=== PATIENT | male | born 2005 | race Caucasian/White ===

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

== ENCOUNTER → 2025-05-06 | Outpatient (CLI) | payer OTHER, SELFPAY ==
--- NOTE | 2025-05-05 10:00 | TONS_PTH ---
PATIENT: JUAN BECERRA [facility] U#:[id number] AGE/SX: 19/M ROOM: RE05/06/[address]: Dr. William Weiner MD : 2005 BED: DIS: 05/06/2025 SPEC #: [id number] RECD: 05/06/25 14:53 STATUS: MARY REQ #: [id number] IVY: 05/05/25 10:[address]: William Weiner DEPT: SURGICAL PATHOLOGY RECD BY: Sánchez Ashraf ENTERED: 05/07/25 10:31 SP TYPE: TONSILS OTHR DR: Dr. Zack Argueta MD Tissues: A - Tonsil, NOS Procedures: Surgery Specimen Level III HEADER OPERATION: Tonsillectomy PRE-OP DIAGNOSIS: Hypertrophy of tonsils, snoring, chronic tonsillitis TISSUE SUBMITTED: A- Bilateral tonsils *right pinned* MICROSCOPIC DIAGNOSIS A. Tonsils, tonsillectomy: - Reactive lymphoid hyperplasia, left (A1). - Reactive lymphoid hyperplasia, right (A2). MICROSCOPIC DESCRIPTION Slides are reviewed. GROSS DESCRIPTION Received in formalin labeled with the patient's name and date of . Designated as tonsils are two razo tonsils, each surfaced by razo-pink, granular, focally congested and focally disrupted mucosa. There is a pin designating the right tonsil which is inked green. They measure 3.6 x 2.4 x 2.3 cm (left) and 3.7 x 2.5 x 2.2 cm (right). Sectioning reveals razo, focally erythematous cryptic cut surfaces containing minimal grumous material. Outreach Manager sections are submitted as follows: A1: Left tonsilA2: Right tonsil IN 05/07/2025 CPT:93511l0
--- OUTSIDE RECORDS SUMMARY | 2025-05-06 19:02 | XMS RPT_ITS | CCD ---
Author Organization [facility] Care Team Providers Care Distribution Operation Supervisor Name Role Phone Zack Holder MD Primary Care Provider ZACK HOLDER Primary Care Unavailable CLARISSA ARTHUR Attending Unavailable ZACK HOLDER Primary Care Unavailable ZACK HOLDER Primary Care Unavailable Allergies Allergy Classification Reported Allergen(s) Allergy Type Date of Onset Reaction(s) Facility (11 sources) Cephalosporins (Antibiotic); Translations: [CEPHALOSPORINS] Drug Allergy 2 Hives, Diarrhea [facility] (11 sources) Seasonal allergy; Translations: [SEASONAL ALLERGIES] Allergy to substance 2 Other: See Comments [facility] Medications Current Medications Medication Drug Class(es) Dates Sig (Normalized) Sig (Original) amoxicillin 500 mg oral capsule (1 source) Penicillin-class Antibacterial Start: 03-24-2024 End: 04-03-2024 take 1 capsule by mouth twice daily amoxicillin (AMOXIL) 500 mg capsule Take 1 capsule by mouth two times a day for 10 days. 20 capsule 03/24/2024 04/03/2024 Active brompheniramine maleate 0.4 mg/ml / dextromethorphan hydrobromide 2 mg/ml / pseudoephedrine hydrochloride 6 mg/ml oral solution (3 sources) alpha-Adrenergic Agonist, Uncompetitive P-rqjnun-E-aspartat e Receptor Antagonist, Sigma-1 Agonist Start: 03-24-2024 take 10 mL by mouth every six hours as needed Brompheniramine-P seudoeph-DM (BROMFED DM) 2-30-10 mg/5 mL syrup Take 10 mL by mouth four times a day as needed. 118 mL 03/24/2024 Active DM/p-ephed/acetaminoph /doxylam (NYQUIL ORAL) (3 sources) End: 03-24-2024 DM/p-ephed/acetam inoph/doxylam (NYQUIL ORAL) Take by mouth. 03/24/2024 Discontinued (Other) DM/p-ephed/aceta minoph/doxylam (NYQUIL ORAL) Take by mouth. 0 Active Comment on above: Take by mouth. doxycycline hyclate 100 mg oral tablet (1 source) Tetracycline-cla ss Drug Start: 03-24-2024 End: 03-24-2024 take 1 tablet by mouth twice daily doxycycline (VIBRA-TABS) 100 mg tablet Take 1 tablet by mouth two times a day for 7 days. 14 tablet 03/24/2024 03/24/2024 Discontinued (Side Effects) predniSONE 20 mg oral tablet (1 source) Start: 04-27-2024 End: 05-02-2024 take 1 tablet by mouth once daily predniSONE (DELTASONE) 20 mg tablet Indications: Sore throat Take 1 tablet by mouth once daily for 5 days. 5 tablet 04/27/2024 05/02/2024 Active Completed/Discontinued Medications Medication Drug Class(es) Dates Sig (Normalized) Sig (Original) hydrocortisone 10 mg/ml / neomycin 3.5 mg/ml / polymyxin b [id number] unt/ml otic suspension (1 source) Aminoglycoside Antibacterial, Polymyxin-class Antibacterial, Corticosteroid Start: 12-07-2020 End: 11-26-2021 neomycin-polymyxi n-hydrocortisone (CORTISPORIN) 3.5-10,000-1 mg/mL-unit/mL-% otic suspension Use 3 Drops in both ears four times daily. 10 mL 0 12/07/2020 11/26/2021 Discontinued Comment on above: Use 3 Drops in both ears four times daily. ibuprofen 200 mg oral capsule (4 sources) Nonsteroidal Anti-inflammatory Drug End: 12-20-2021 Ibuprofen 200 mg cap Take 200 mg by mouth as needed. 12/20/2021 Discontinued Comment on above: Take 200 mg by mouth as needed. loratadine 10 mg oral tablet (4 sources) End: 12-20-2021 loratadine (CLARITIN) 10 mg tablet Take 10 mg by mouth as needed. 12/20/2021 Discontinued Comment on above: Take 10 mg by mouth as needed. Problems Active Problems Problem Classification Problem Date Documented Da te Episodic/Chronic Immunizations and screening for infectious disease (1 source) Patient encounter status; Translations: [Encounter for immunization] Episodic Other and unspecified benign neoplasm (1 source) Dermoid cyst of neck; Translations: [Benign neoplasm of other specified sites] 08-04-2023 Episodic Other ear and sense organ disorders (1 source) Impacted cerumen of bilateral ears; Translations: [Impacted cerumen, bilateral] 08-04-2023 Episodic Other upper respiratory infections (7 sources) Sore throat symptom; Translations: [Acute pharyngitis, unspecified] Onset: 11-13-2024 11-09-2023 Episodic Viral infection (2 sources) Viral disease; Translations: [Viral infection, unspecified] Onset: 11-13-2024 11-13-2024 Episodic Past or Other Problems Problem Classification Problem Date Documented Da te Episodic/Chronic Other non-traumatic joint disorders (11 sources) Pain in elbow; Translations: [Pain in right elbow] Onset: 12-06-2021 Episodic Other nutritional; endocrine; and metabolic disorders (7 sources) Overweight; Translations: [Overweight] Onset: 04-07-2017 Resolved: 12-20-2021 04-07-2017 Episodic Results Test Name Value Interpretation Reference Range Facility [facility] 11-13-2024 CNOV Office Visit ([facility]) ---- PHILOMENACHRIS Guerra ([id number]) 1 M Date Time Provider Department 11/13/24 1:30 PM CLARISSA ARTHUR [facility] During your visit today, we recorded the following information about you: Temperature Pulse Respiration Blood pressure 100.4 degrees 107/minute 16/minute 128/78 Weight 109.6 kg Clarissa Arthur APRN.OPTOMECHANICAL ENGINEER 11/13/2024 1:56 PM Signed [facility] Subjective Chris Quach is a 18 year old male. Patient presents with: Sore Throat: ST and fever x 1 day Sore Throat Sore Throat: - Onset yesterday. - Reports huge tonsils, but denies dyspnea or difficulty swallowing. - Denies rhinorrhea, cough, congestion, or otalgia. - Took Advil for symptom relief. Fever: - Subjective fever last night; current temperature 100.4 degreeF. - Denies known exposure to sick contacts. Arthralgia: - Describes joint pain as achy and arthritic, particularly in the hands. Fatigue: - Reports significant fatigue, sleeping until 10:30 AM, which is unusual for him. - Typically wakes up between 04:00 and 06:00 due to work schedule. Review of Systems HENT: Positive for sore throat. Constitutional: (+) fever, (+) fatigue Ears/Nose/Mouth/Thr oat: (+) sore throat, (+) tonsillar swelling, (-) rhinorrhea, (-) nasal congestion, (-) cough, (-) ear pain Respiratory: (-) dyspnea Musculoskeletal: (+) joint pain, (+) myalgia Objective BP 128/78 Pulse 107 Temp (!) 38 ?C (100.4 ?F) (Tympanic) Resp 16 Wt 109.6 kg (241 lb 10 oz) SpO2 98% PAST MEDICAL HISTORY Diagnosis Date - Eye injury 12/10/2011 Cut right eye with scissors; repair - NEGATIVE MEDICAL HISTORY Normal color vision - Varicella 09/05/2016 PAST SURGICAL HISTORY Procedure Laterality Date - CIRCUMCISION W/CLAMP/OTH DEV W/BLOCK at - HERNIA REPAIR HX age 21 months-bilateral - REPAIR OF HYDROCELE 21 mos bilat ALLERGIES Cephalosporins and Seasonal Allergies MEDICATIONS - Brompheniramine-Pse udoeph-DM (BROMFED DM) 2-30-10 mg/5 mL syrup Take 10 mL by mouth four times a day as needed. (Patient not taking: Reported on 04/27/2024) FAMILY HISTORY Problem Relation Age of Onset - Allergies Mother - None Father - Diabetes Father Cousins-junenile diabetes - Cancer Father Great aunt-small cell lung - Heart Father Paternal/ Maternal Side - No Known Problems Sister - No Known Problems Maternal Grandmother - No Known Problems Maternal Grandfather - No Known Problems Paternal Grandmother - No Known Problems Paternal Grandfather Social History Tobacco Use - Smoking status: Never - Smokeless tobacco: Never Vaping Use - Vaping status: Never Used Substance Use Topics - Alcohol use: No - Drug use: No Physical Exam Vitals and nursing note reviewed. Constitutional: General: He is not in acute distress. Appearance: Normal appearance. He is not ill-appearing. HENT: Right Ear: Tympanic membrane, ear canal and external ear normal. Left Ear: Tympanic membrane, ear canal and external ear normal. Nose: Nose normal. Mouth/Throat: Mouth: Mucous membranes are moist. Pharynx: Oropharynx is clear. Uvula midline. Posterior oropharyngeal erythema present. No pharyngeal swelling, oropharyngeal exudate or uvula swelling. Tonsils: No tonsillar exudate. 2+ on the right. 2+ on the left. Cardiovascular: Rate and Rhythm: Normal rate and regular rhythm. Heart sounds: Normal heart sounds. Pulmonary: Effort: Pulmonary effort is normal. No respiratory distress. Breath sounds: Normal breath sounds. No wheezing or rales. Skin: General: Skin is warm and dry. Findings: No erythema or rash. Neurological: Mental Status: He is alert. General: Mild fever. HEENT: Tonsils enlarged; heart regular rate and rhythm; lungs clear to auscultation. {1. Sore throat (J02.9) 2. Viral syndrome (B34.9) - Onset of symptoms yesterday, including sore throat, fever, arthralgia, and fatigue. - Physical exam reveals tonsillar hypertrophy. - Group A molecular strep test negative. - Symptoms consistent with viral etiology. - Advised supportive care: saline gargles, adequate hydration, and use of acetaminophen or ibuprofen for analgesia and antipyresis. - Educated on typical viral course, with symptom resolution expected within 4-5 days. - Instructed to return for further evaluation if symptoms persist for 7 days. - Follow-up with your PCP in 3-5 days if symptoms have not improved or sooner if symptoms worsen - Discussed red flags and need for immediate medical evaluation if any occur. - Discussed supportive care treatment with fluids, rest and analgesia. - Discussed expected course of illness Clarissa Arthur APRN.OPTOMECHANICAL ENGINEER and Recording using [employer] software for draft documentation of the visit was discussed with the patient/authorized medical representative; all questions welcomed and an (more content not included)... Normal [facility] STREP A MOLECULAR (POC)on Procedural Control Valid [facility] Strep A (POCT) Negative Negative [facility] CNOVon 04-27-2024 CNOV Office Visit ([facility]WSTR) ---- CHRIS QUACH ([id number]) 1 M Date Time Provider Department 04/27/24 1:45 PM ERIN JACOBS [facility] During your visit today, we recorded the following information about you: Temperature Pulse Respiration Blood pressure 97.3 degrees 60/minute 18/minute 109/56 Weight 106.7 kg Erin Jacobs APRN.OPTOMECHANICAL ENGINEER 04/27/2024 2:14 PM Signed CC: Patient presents with: Sore Throat: X3 days HPI: Chris Quach is a 18 year old male who presents to the office with complaint of head congestion and sore throat for a few days. Symptoms are staying the same. Associated symptoms includes sore throat. Denies fever, nausea, vomiting , and diarrhea. Treatments tried include nothing so far. with no relief of symptoms. Sick contacts: unknown. History of asthma, frequent episodes of bronchitis, chronic bronchitis, bronchiectasis or COPD: No Smoker: No Seasonal/environmen daniel allergies: No The ROS is otherwise negative. The patient's pmh, medications, allergies, and past visits are reviewed. PHYSICAL EXAM: BP 109/56 Pulse 60 Temp 36.3 ?C (97.3 ?F) Resp 18 Wt 106.7 kg (235 lb 3.7 oz) SpO2 96% General appearance: alert, cooperative, pleasant, in no acute distress Head: Normocephalic Eyes: EOM's intact, conjunctiva pink and moist, no icterus, sclera white, non-injected Ears: Right ear: External ear/canal- Normal, TM - clear with good landmarks. Left ear: External ear/canal- Normal, TM - clear with good landmarks Oropharynx:moderate erythema, without exudates present, plus 2 Heart: Negative. RRR without obvious murmur, gallop, or rubs. No ectopy. Lungs: clear to auscultation, without rales or wheeze, good air exchange PAST MEDICAL HISTORY Diagnosis Date Eye injury 12/10/2011 Cut right eye with scissors; repair NEGATIVE MEDICAL HISTORY Normal color vision Varicella 09/05/2016 PAST SURGICAL HISTORY Procedure Laterality Date CIRCUMCISION W/CLAMP/OTH DEV W/BLOCK at HERNIA REPAIR HX age 21 months-bilateral REPAIR OF HYDROCELE 21 mos bilat ALLERGIES Cephalosporins and Seasonal Allergies MEDICATIONS Brompheniramine-Pse udoeph-DM (BROMFED DM) 2-30-10 mg/5 mL syrup Take 10 mL by mouth four times a day as needed. (Patient not taking: Reported on 04/27/2024) FAMILY HISTORY Problem Relation Age of Onset Allergies Mother None Father Diabetes Father Cousins-junenile diabetes Cancer Father Great aunt-small cell lung Heart Father Paternal/ Maternal Side No Known Problems Sister No Known Problems Maternal Grandmother No Known Problems Maternal Grandfather No Known Problems Paternal Grandmother No Known Problems Paternal Grandfather Social History Tobacco Use Smoking status: Never Smokeless tobacco: Never Vaping Use Vaping status: Never Used Substance Use Topics Alcohol use: No Drug use: No ASSESSMENT/PLAN: 1. Sore throat - ICD9: 462, ICD10: J02.9 - STREP A MOLECULAR (POC) - neg Prednisone for throat discomfort related to inflamation Prescription instructions reviewed with patient as applicable. Potential red flag symptoms discussed with the patient. Reviewed appropriate action plan to take if red flag symptoms occur. Patient agreeable to treatment plan. Will follow up with PCP if persists or worsens for possible mono or further testing. Erin Jacobs APRN.OPTOMECHANICAL ENGINEER Allergies As of Date: 04/27/2024 Noted Allergy Reaction CEPHALOSPORINS 02/20/2012 4 - Hives 6 - Diarrhea SEASONAL ALLERGIES 02/20/2012 14 - Other: See Comments Comments: Runny nose, clears throat a lot Date Reviewed: 04/27/2024 Reviewed by: Lenora Diamond MA - Fully Assessed Reason for Visit: Sore Throat [200] Cmt: X3 days Primary Visit Diagnosis:Sore throat [J02.9] Order(s):STREP A MOLECULAR (POC) [[id number]] Order #: [id number]. #:[id number] predniSONE (DELTASONE) 20 mg tabletTake 1 tablet by mouth once daily for 5 days.Disp: 5 tabletRfl: 0 Prescriptions as of 04/27/2024 - predniSONE (DELTASONE) 20 mg tablet Take 1 tablet by mouth once daily for 5 days. - Brompheniramine-Pse udoeph-DM (BROMFED DM) 2-30-10 mg/5 mL syrup Take 10 mL by mouth four times a day as needed. Problem List As Of Date 04/27/2024 Noted Resolved Overweight [E66.3] 04/07/2017 12/20/2021 Pain in right elbow [M25.521] 12/06/2021 Prescriptions ordered this encounter Disp Refills Start End PREDNISONE 20 MG TABLET 5 ta* 0 04/27/2024 05/02/2024 Route: ORAL Sig: Take 1 tablet by mouth once daily for 5 days. Encounter Status:Closed by ERIN JACOBS on 04/27/24 Normal [facility] STREP A MOLECULAR (POC)on Procedural Control Valid [facility] Strep A (POCT) Negative Negative [facility] CNOVon 03-24-2024 CNOV Office Visit ([facility]) ---- CHRIS QUACH ([id number]) 1 M Date Time Provider Department 03/24/24 8:30 AM INES CABRERA [facility] During your visit today, we recorded the following information about you: Temperature Pulse Respiration Blood pressure 97.9 degrees 60/minute 20/minute 120/80 Weight 106.9 kg Ines Cabrera PA 03/24/2024 8:39 AM Signed This note was created using NoteWriter. Subjective Chris Quach is a 18 year old male. HPI 18-year-old male presents for sore throat, nasal congestion, chest congestion x 1 month. Patient states that he has been having on and off symptoms for the past month. He has constant nasal congestion and sore throat. States his tonsils look swollen. He states he has had chest congestion and productive cough. His left ear felt clogged last night. He has not noted any fevers, but has had chills and sweating. He has also had bodyaches. No vomiting or diarrhea. He did try DayQuil for the first week, but it did not help at all. No other complaint. PAST MEDICAL HISTORY Diagnosis Date Eye injury 12/10/2011 Cut right eye with scissors; repair NEGATIVE MEDICAL HISTORY Normal color vision Varicella 09/05/2016 PAST SURGICAL HISTORY Procedure Laterality Date CIRCUMCISION W/CLAMP/OTH DEV W/BLOCK at HERNIA REPAIR HX age 21 months-bilateral REPAIR OF HYDROCELE 21 mos bilat ALLERGIES Cephalosporins and Seasonal Allergies MEDICATIONS No prescriptions on file. FAMILY HISTORY Problem Relation Age of Onset Allergies Mother None Father Diabetes Father Cousins-junenile diabetes Cancer Father Great aunt-small cell lung Heart Father Paternal/ Maternal Side No Known Problems Sister No Known Problems Maternal Grandmother No Known Problems Maternal Grandfather No Known Problems Paternal Grandmother No Known Problems Paternal Grandfather Social History Tobacco Use Smoking status: Never Smokeless tobacco: Never Vaping Use Vaping status: Never Used Substance Use Topics Alcohol use: No Drug use: No Review of Systems Constitutional: Positive for chills. Negative for fever. HENT: Positive for congestion, ear pain, sinus pressure and sore throat. Respiratory: Positive for cough. Negative for shortness of breath. Gastrointestinal: Negative for diarrhea and vomiting. Musculoskeletal: Positive for myalgias. Objective BP 120/80 Pulse 60 Temp 36.6 ?C (97.9 ?F) Resp 20 Wt 106.9 kg (235 lb 10.8 oz) SpO2 98% Physical Exam Vitals and nursing note reviewed. Constitutional: General: He is not in acute distress. Appearance: Normal appearance. He is not toxic-appearing. HENT: Right Ear: Tympanic membrane and ear canal normal. Left Ear: Tympanic membrane and ear canal normal. Nose: Mucosal edema and congestion present. Mouth/Throat: Mouth: Mucous membranes are moist. Pharynx: Uvula midline. Posterior oropharyngeal erythema present. Tonsils: No tonsillar exudate. 2+ on the right. 2+ on the left. Eyes: Conjunctiva/sclera: Conjunctivae normal. Cardiovascular: Rate and Rhythm: Normal rate and regular rhythm. Pulmonary: Effort: Pulmonary effort is normal. Breath sounds: Normal breath sounds. No wheezing, rhonchi or rales. Skin: General: Skin is warm and dry. Neurological: Mental Status: He is alert. Assessment and Plan ASSESSMENT/PLAN: 1. Strep pharyngitis - ICD9: 034.0, ICD10: J02.0 (primary diagnosis) - suspect strep - Group A strep molecular testing positive - Amoxicillin for 10 days. - Discussed supportive care treatment with fluids, rest and analgesia. - The patient may also use warm salt water gargles, throat lozenges and/or OTC throat spray as needed. 2. Sore throat - ICD9: 462, ICD10: J02.9 - STREP A MOLECULAR (POC) 3. URI, acute - ICD9: 465.9, ICD10: J06.9 - Discussed viral etiology and rationale for treatment. - Symptomatic treatment with prn analgesia - Supportive care with fluids and rest -Rx for Bromfed Diagnosis and treatment plan were discussed and questions were answered to the patient's satisfaction. Pt acknowledged understanding of concepts and follow up plan. Specific signs and symptoms that would indicate the need for higher level of care were discussed in detail warranting prompt ER evaluation. SARAHI Valle Allergies As of Date: 03/24/2024 Noted Allergy Reaction CEPHALOSPORINS 02/20/2012 4 - Hives 6 - Diarrhea SEASONAL ALLERGIES 02/20/2012 14 - Other: See Comments Comments: Runny nose, clears throat a lot Date Reviewed: 03/24/2024 Reviewed by: Iris Dent LPN - Fully Assessed Reason for Visit: Sore Throat [200] Cmt: Nasal congest, chest congestion, Left ear clogged, x 1 month Primary Visit Diagnosis:Strep pharyngitis [J02.0] Other Visit Diagnoses:Sore throat [J02.9] URI, acute [J06.9] Order(s):STREP A MOLECULAR (POC) [[id number]] Order #: (more content not included)... Normal [facility] STREP A MOLECULAR (POC)on Interpretation and review of laboratory results Abnormal [facility] Procedural Control Valid [facility] Strep A (POCT) Positive Abnormal Negative [facility] STREP A MOLECULAR (POC)on Procedural Control Valid [facility] Strep A (POCT) Negative Negative [facility] No Panel Informationon 04-24 IMPRESSION: Ankle joint effusion and soft tissue swelling with no acute osseous abnormality. Manager Of Selection And Assessment: MARÍA Transcribe Date/Time: Apr 24 2020 5:00P Dictated by : SYDNEE CABRERA MD This examination was interpreted and the report reviewed and electronically signed by: SYDNEE CABRERA MD on Apr 24 2020 5:02PM [facility] DIVISION OF RADIOLOGY Radiology Study observation (narrative) [facility] No Panel InformationOrdered By: Ccf Provider on 04-24-2020 [facility] XR Ankle - right AP and Late ral and obliqueon 04-24-2020 * * *Final Report* * * DATE OF EXAM: Apr 24 2020 4:57PM WOX [id number] - XR ANKLE 3V AP/LAT/OBL RT / PROCEDURE REASON: Lower extremity injury, right, initial encounter * * * * Physician Interpretation * * * * TECHNIQUE: XR ANKLE 3V AP/LAT/OBL RT, XR FOOT 3V AP/LAT/OBL RT - EXAM DATE: 04/24/2020 4:57 PM CLINICAL HISTORY: 14 years Male with Lower extremity injury, right, initial encounter ; pt states walking in yard and hit a dip and rolled his right ankle, pain lateral right ankle and in the 4-5th MTs. Not able to bear weight COMPARISON: None RESULT: Right ankle: There is no fracture. Bone density is normal. The tibiotalar joint is congruent. There is soft tissue swelling over the lateral malleolus and a small joint effusion. Right foot: There is no fracture or dislocation. Bone density is normal. Joint spaces are maintained. Ankle joint effusion and soft tissue swelling. DIVISION OF RADIOLOGY Provider, [facility] [place] - 04/24/2020 * * *Final Report* * * DATE OF EXAM: Apr 24 2020 4:57PM WOX [id number] - XR ANKLE 3V AP/LAT/OBL RT / PROCEDURE REASON: Lower extremity injury, right, initial encounter * * * * Physician Interpretation * * * * TECHNIQUE: XR ANKLE 3V AP/LAT/OBL RT, XR FOOT 3V AP/LAT/OBL RT - EXAM DATE: 04/24/2020 4:57 PM CLINICAL HISTORY: 14 years Male with Lower extremity injury, right, initial encounter ; pt states walking in yard and hit a dip and rolled his right ankle, pain lateral right ankle and in the 4-5th MTs. Not able to bear weight COMPARISON: None RESULT: Right ankle: There is no fracture. Bone density is normal. The tibiotalar joint is congruent. There is soft tissue swelling over the lateral malleolus and a small joint effusion. Right foot: There is no fracture or dislocation. Bone density is normal. Joint spaces are maintained. Ankle joint effusion and soft tissue swelling. IMPRESSION IMPRESSION: Ankle joint effusion and soft tissue swelling with no acute osseous abnormality. Manager Of Selection And Assessment: PSCB Transcribe Date/Time: Apr 24 2020 5:00P Dictated by : SYDNEE CABRERA MD This examination was interpreted and the report reviewed and electronically signed by: SYDNEE CABRERA MD on Apr 24 2020 5:02PM EST [facility] XR Foot - right AP and Later al and obliqueon 04-24-2020 * * *Final Report* * * DATE OF EXAM: Apr 24 2020 4:57PM WOX [id number] - XR FOOT 3V AP/LAT/OBL RT / PROCEDURE REASON: Lower extremity injury, right, initial encounter * * * * Physician Interpretation * * * * TECHNIQUE: XR ANKLE 3V AP/LAT/OBL RT, XR FOOT 3V AP/LAT/OBL RT - EXAM DATE: 04/24/2020 4:57 PM CLINICAL HISTORY: 14 years Male with Lower extremity injury, right, initial encounter ; pt states walking in yard and hit a dip and rolled his right ankle, pain lateral right ankle and in the 4-5th MTs. Not able to bear weight COMPARISON: None RESULT: Right ankle: There is no fracture. Bone density is normal. The tibiotalar joint is congruent. There is soft tissue swelling over the lateral malleolus and a small joint effusion. Right foot: There is no fracture or dislocation. Bone density is normal. Joint spaces are maintained. Ankle joint effusion and soft tissue swelling. DIVISION OF RADIOLOGY Provider, [facility] [place] - 04/24/2020 * * *Final Report* * * DATE OF EXAM: Apr 24 2020 4:57PM WOX 5337 - XR FOOT 3V AP/LAT/OBL RT / PROCEDURE REASON: Lower extremity injury, right, initial encounter * * * * Physician Interpretation * * * * TECHNIQUE: XR ANKLE 3V AP/LAT/OBL RT, XR FOOT 3V AP/LAT/OBL RT - EXAM DATE: 04/24/2020 4:57 PM CLINICAL HISTORY: 14 years Male with Lower extremity injury, right, initial encounter ; pt states walking in yard and hit a dip and rolled his right ankle, pain lateral right ankle and in the 4-5th MTs. Not able to bear weight COMPARISON: None RESULT: Right ankle: There is no fracture. Bone density is normal. The tibiotalar joint is congruent. There is soft tissue swelling over the lateral malleolus and a small joint effusion. Right foot: There is no fracture or dislocation. Bone density is normal. Joint spaces are maintained. Ankle joint effusion and soft tissue swelling. IMPRESSION IMPRESSION: Ankle joint effusion and soft tissue swelling with no acute osseous abnormality. Manager Of Selection And Assessment[facility] Transcribe Date/Time: Apr 24 2020 5:00P Dictated by : SYDNEE CABRERA MD This examination was interpreted and the report reviewed and electronically signed by: SYDNEE CABRERA MD on Apr 24 2020 5:02PM [facility] Vital Signs Date Time Vital Sign Value Performing Clinician Harrison kingsley 11-13-2024 13:20-0400 Body temperature 100.4 [degF] Clarissa Escobar-Randy ELIASN.OPTOMECHANICAL ENGINEER Work Phone: [facility] 11-13-2024 13:20-0400 Body weight 109.6 kg Clarissa Escobar-Randy PANEL WIRER.OPTOMECHANICAL ENGINEER Work Phone: [facility] 11-13-2024 13:20-0400 Diastolic blood pressure 78 mm[Hg] Clarissa Praisler-Randy PANEL WIRER.OPTOMECHANICAL ENGINEER Work Phone: [facility] 11-13-2024 13:20-0400 Heart rate 107 /min Clarissa Escobar-Randy PANEL WIRER.OPTOMECHANICAL ENGINEER Work Phone: [facility] 11-13-2024 13:20-0400 Respiratory rate 16 /min Clarissamichael Binghamler-Randy PANEL WIRER.OPTOMECHANICAL ENGINEER Work Phone: [facility] 11-13-2024 13:20-0400 SaO2% (BldA) [Mass fraction] 98 % Clarissa Arthur APRN.OPTOMECHANICAL ENGINEER Work Phone: [facility] 11-13-2024 13:20-0400 Systolic blood pressure 128 mm[Hg] Clarissa Arthur PANEL WIRER.OPTOMECHANICAL ENGINEER Work Phone: [facility] 04-27-2024 13:50-0500 Body temperature 97.3 [degF] Erin Jacobs APRN.OPTOMECHANICAL ENGINEER Work Phone: [facility] 04-27-2024 13:50-0500 Body weight 106.7 kg Erin Jacobs APRN.OPTOMECHANICAL ENGINEER Work Phone: [facility] 04-27-2024 13:50-0500 Diastolic blood pressure 56 mm[Hg] Erin Jacobs APRN.OPTOMECHANICAL ENGINEER Work Phone: [facility] 04-27-2024 13:50-0500 Heart rate 60 /min Erin Jacobs APRN.OPTOMECHANICAL ENGINEER Work Phone: [facility] 04-27-2024 13:50-0500 Respiratory rate 18 /min Erin Jacobs APRN.OPTOMECHANICAL ENGINEER Work Phone: [facility] 04-27-2024 13:50-0500 SaO2% (BldA) [Mass fraction] 96 % Erin Jacobs APRN.OPTOMECHANICAL ENGINEER Work Phone: [facility] 04-27-2024 13:50-0500 Systolic blood pressure 109 mm[Hg] Erin Jacobs APRN.OPTOMECHANICAL ENGINEER Work Phone: [facility] 03-24-2024 08:25-0400 Body temperature 97.9 [degF] Ines Cabrera PA Work Phone: [facility] 03-24-2024 08:25-0400 Body weight 106.9 kg Ines Cabrera PA Work Phone: [facility] 03-24-2024 08:25-0400 Diastolic blood pressure 80 mm[Hg] Krislyn Aberegg PA Work Phone: [facility] 03-24-2024 08:25-0400 Heart rate 60 /min Krislyn Aberegg PA Work Phone: [facility] 03-24-2024 08:25-0400 Respiratory rate 20 /min Krislyn Aberegg PA Work Phone: [facility] 03-24-2024 08:25-0400 SaO2% (BldA) [Mass fraction] 98 % Krislyn Aberegg PA Work Phone: [facility] 03-24-2024 08:25-0400 Systolic blood pressure 120 mm[Hg] Krislyn Aberegg PA Work Phone: [facility] 11-09-2023 07:36-0400 Body temperature 97.11 [degF] Oliver Pendlebury PANEL WIRER.OPTOMECHANICAL ENGINEER Work Phone: [facility] 11-09-2023 07:36-0400 Body weight 110.7 kg Oliver Pendlebury PANEL WIRER.OPTOMECHANICAL ENGINEER Work Phone: [facility] 11-09-2023 07:36-0400 Diastolic blood pressure 60 mm[Hg] Oliver Pendlebury PANEL WIRER.OPTOMECHANICAL ENGINEER Work Phone: [facility] 11-09-2023 07:36-0400 Heart rate 66 /min Oliver Pendlebury PANEL WIRER.OPTOMECHANICAL ENGINEER Work Phone: [facility] 11-09-2023 07:36-0400 Respiratory rate 16 /min Oliver Pendlebury PANEL WIRER.OPTOMECHANICAL ENGINEER Work Phone: [facility] 11-09-2023 07:36-0400 SaO2% (BldA) [Mass fraction] 96 % Oliver Pendlebury PANEL WIRER.OPTOMECHANICAL ENGINEER Work Phone: [facility] 11-09-2023 07:36-0400 Systolic blood pressure 108 mm[Hg] Oliver Pendlebury PANEL WIRER.OPTOMECHANICAL ENGINEER Work Phone: [facility] 08-04-2023 15:28-0500 Body temperature 97.5 [degF] Flor Child MD Work Phone: [facility] 08-04-2023 15:28-0500 Body weight 103.69 kg Flor Child MD Work Phone: [facility] 08-04-2023 15:28-0500 Heart rate 72 /min Flor Child MD Work Phone: [facility] 08-04-2023 15:28-0500 Respiratory rate 16 /min Flor Child MD Work Phone: [facility] 12-20-2021 08:09-0400 Body height 181.5 cm Zack Holder MD Work Phone: [facility] 12-20-2021 08:09-0400 Body mass index (BMI) [Percentile] Per age and sex 92.12 % Zack Holder MD Work Phone: [facility] 12-20-2021 08:09-0400 Body temperature 97.9 [degF] Zack Holder MD Work Phone: [facility] 12-20-2021 08:09-0400 Body weight 90.72 kg Zack Holder MD Work Phone: [facility] 12-20-2021 08:09-0400 Diastolic blood pressure 70 mm[Hg] Zack Holder MD Work Phone: [facility] 12-20-2021 08:09-0400 Heart rate 68 /min Zack Holder MD Work Phone: [facility] 12-20-2021 08:09-0400 Respiratory rate 18 /min Zack Holder MD Work Phone: [facility] 12-20-2021 08:09-0400 Systolic blood pressure 112 mm[Hg] Zack Holder MD Work Phone: [facility] 11-26-2021 10:32-0400 Body temperature 97.59 [degF] Zack Holder MD Work Phone: [facility] 11-26-2021 10:32-0400 Body weight 88.22 kg Zack Holder MD Work Phone: [facility] 11-26-2021 10:32-0400 Heart rate 72 /min Zack Holder MD Work Phone: [facility] 11-26-2021 10:32-0400 Respiratory rate 14 /min Zack Holder MD Work Phone: [facility] Encounters Encounter Date Encounter Type Care Provider Facility Start: 11-13-2024 End: 11-13-2024 Patient encounter procedure Clarissa Arthur APRN.OPTOMECHANICAL ENGINEER Work Phone: [facility] Comment on above: Sore throat (Primary Dx); Viral syndrome Start: 11-13-2024 End: 11-13-2024 ambulatory ZACK WILDATING Facility:[facility] Start: 04-27-2024 End: 04-27-2024 ambulatory ZACK Greer GLORY Facility:[facility] Start: 04-27-2024 End: 04-27-2024 Patient encounter procedure Erin Jacobs APRN.OPTOMECHANICAL ENGINEER Work Phone: [facility] Comment on above: Sore throat (Primary Dx) Start: 03-24-2024 End: 03-24-2024 ambulatory ZACK HOLDER Facility:[facility] Start: 03-24-2024 End: 03-24-2024 Patient encounter procedure Ines MCCLAIN Work Phone: [facility] Comment on above: Strep pharyngitis (P rimary Dx); Sore throat; URI, acute Start: 11-09-2023 End: 11-09-2023 Office outpatient visit 15 minutes Oliver Cartagena APRN.OPTOMECHANICAL ENGINEER Work Phone: [facility] Comment on above: Sore throat (Primary Dx) Start: 08-04-2023 End: 08-04-2023 Office outpatient visit 15 minutes Flor Child MD Work Phone: [facility] Comment on above: Bilateral impacted c erumen (Primary Dx); Dermoid cyst of neck Start: 12-20-2021 End: 12-20-2021 ambulatory Lynda Osorio PT [facility] Comment on above: Pain in right elbow Start: 12-20-2021 End: 12-20-2021 Patient encounter procedure Zack Holder MD Work Phone: [facility] Comment on above: Encounter for routin e child health examination w/o abnormal findings (Primary Dx); Encounter for immunization Start: 12-20-2021 End: 12-20-2021 Patient encounter status Zack Holder MD Work Phone: [facility] Start: 12-13-2021 End: 12-13-2021 ambulatory Yady Baltazar MUSEUM PREPARATOR Work Phone: [facility] Comment on above: Pain in right elbow Start: 11-26-2021 End: 11-26-2021 Office outpatient visit 15 minutes Zack Holder MD Work Phone: [facility] [place] Comment on above: Pain in right elbow (Primary Dx) Start: 04-24-2020 End: 04-24-2020 Subsequent hospital visit by physician Xr [facility] Work Phone: Radiology Comment on above: Lower extremity inju ry, right, initial encounter [S89.91XA] Procedures Date Procedure Procedure Detail Performing Clinician Start: 11-13-2024 Iadna streptococcus group a amplified probe tq Lynda Plummer PANEL WIRER.OPTOMECHANICAL ENGINEER Work Phone: Start: 04-27-2024 STREP A MOLECULAR (POC) Violet Foreman PA-C Work Phone: Start: 03-24-2024 STREP A MOLECULAR (POC) Erin Jacobs PANEL WIRER.OPTOMECHANICAL ENGINEER Work Phone: Start: 11-09-2023 STREP A MOLECULAR (POC) William Momin MD Work Phone: Start: 12-20-2021 Menacwy-tt conj vacc serogroups acwy for im use Zack Holder MD Work Phone: Start: 12-20-2021 MENINGOCOCCAL GROUP B VACCINE 2 DOSE Zack Holder MD Work Phone: Start: 12-20-2021 Adult depression scr eening assessment Zack Holder MD Work Phone: Start: 04-24-2020 Radex ankle complete minimum 3 views Slava Blackman APRN.CNP Work Phone: Start: 10-18-2018 Adult depression scr eening assessment Zack Holder MD Work Phone: Plan of Treatment Date Care Activity Detail Author Start: 03-07-2026 Urine microalbumin profile [facility] Start: 01-27-2025 Influenza vaccination Influenz a Vaccine (Season Ended) [facility] Start: 01-28-2024 Covid-19 Vaccine ( season) Covid-19 Vaccine () [facility] Start: 01-28-2024 Influenza vaccination C [facility] Start: 11-09-2023 End: 02-08-2024 Heterophile Ab [Presence] in Serum by Latex agglutination MONOTEST, INFECTIOUS MONO Lab Routine Sore throat Expected: 11/09/2023, Expires: 02/08/2024 [facility] Work Phone: Comment on above: Expected: 11/09/2023 , Expires: 02/08/2024 Start: 05-29-2023 Behavioral Health Screening Behavioral Health Screening [facility] Start: 05-29-2023 Depression Assessment Depression Ass essment [facility] Start: 01-27-2023 Covid-19 Vaccine ( season) Covid-19 Vaccine ( season) [facility] Start: 01-27-2023 Influenza vaccination Influenza Vacc ine (#1) [facility] Start: 12-20-2022 Adult depression screening assessment DEPRESSION SCREENING [facility] Start: 06-22-2022 Meningococcal B Vacc ine (2 of 2 - Bexsero SCDM 2-dose series) Meningococcal B Vaccine (2 of 2 - Bexsero SCDM 2-dose series) [facility] Start: 01-27-2022 Influenza vaccination INFLUENZA (#1) [facility] Start: 01-17-2022 Meningococcal B Vacc ine: Consider Based On Risk (2 of 2 - Risk Bexsero 2-dose series) Meningococcal B Vaccine: Consider Based On Risk (2 of 2 - Risk Bexsero 2-dose series) [facility] Start: 01-17-2022 MENINGOCOCCAL B: Consider based on risk (2 of 2 - Risk Bexsero 2-dose series) MENINGOCOCCAL B: Consider based on risk (2 of 2 - Risk Bexsero 2-dose series) [facility] Start: 12-15-2021 Anxiety Screening Anxiety Screening [facility] Start: 12-15-2021 Depression Screening Depression Scre ening [facility] Start: 12-15-2021 HEPATITIS C SCREENING HEPATITIS C [facility] Start: 12-15-2021 Hepatitis C screening Hepatitis C Sc [facility] Start: 12-15-2021 HIV SCREENING HIV SCREENING [facility] Start: 12-15-2021 HIV screening HIV Screening [facility] Start: 2019 MENINGOCOCCAL CONJUG ATE (2 - 2-dose series) MENINGOCOCCAL CONJUGATE (2 - 2-dose series) [facility] Start: 10-19-2019 Adult depression screening assessment DEPRESSION SCREENING [facility] Start: 12-15-2017 PEDS TO ADULT TRANSI TION ANNUAL ASSESSMENT PEDS TO ADULT TRANSITION ANNUAL ASSESSMENT [facility] Start: 2015 PEDS TO ADULT TRANSI TION INITIAL DISCUSSION PEDS TO ADULT TRANSITION INITIAL DISCUSSION [facility] Start: 12-15-2013 MENINGOCOCCAL B: Consider based on risk (1 of 2 - Risk Bexsero 2-dose series) MENINGOCOCCAL B: Consider based on risk (1 of 2 - Risk Bexsero 2-dose series) [facility] Start: 06-17-2004 COVID-19 VACCINE (#1) COVID-19 VACCI NE (#1) [facility] Immunizations Immunization Date Immunization Notes Care Provider Fa cility 12-20-2021 meningococcal (MenACWY-TT) vaccine, quadrivalent (MENQUADFI) Zack Holder MD Work Phone: [facility] Work Phone: 12-20-2021 meningococcal B vacc ine, recombinant, OMV, adjuvanted Zack Holder MD Work Phone: [facility] Work Phone: 04-07-2017 hepatitis B vaccine, pediatric or pediatric/adolescent dosage Zack Holder MD Work Phone: [facility] Work Phone: 04-07-2017 Human Papillomavirus 9-valent vaccine Zack Holder MD Work Phone: [facility] Work Phone: 04-07-2017 influenza, injectabl e, quadrivalent, contains preservative Zack Holder MD Work Phone: [facility] Work Phone: 04-07-2017 poliovirus vaccine, inactivated Zack Holder MD Work Phone: [facility] Work Phone: 04-07-2017 influenza virus vacc ine, unspecified formulation Flor Child MD Work Phone: [facility] 03-07-2016 Human Papillomavirus 9-valent vaccine Zack Holder MD Work Phone: [facility] 03-07-2016 influenza, injectabl e, quadrivalent, contains preservative Zack Holder MD Work Phone: [facility] 03-07-2016 meningococcal polysaccharide (groups A, C, Y and W-135) diphtheria toxoid conjugate vaccine (MCV4P) Zack Holder MD Work Phone: [facility] 03-07-2016 tetanus toxoid, redu fany diphtheria toxoid, and acellular pertussis vaccine, adsorbed Zack Holder MD Work Phone: [facility] 02-19-2009 measles, mumps and rubella virus vaccine Zack Holder MD Work Phone: [facility] 02-19-2009 varicella virus vaccine Zack Holder MD Work Phone: [facility] 01-22-2009 pneumococcal conjuga te vaccine, 13 valent Zack Holder MD Work Phone: [facility] 03-22-2005 diphtheria, tetanus toxoids and acellular pertussis vaccine Zack Holder MD Work Phone: [facility] 03-22-2005 measles, mumps and rubella virus vaccine Zack Holder MD Work Phone: [facility] 12-20-2004 haemophilus influenz ae type b vaccine, PRP-OMP conjugate Zack Holder MD Work Phone: [facility] 12-20-2004 hepatitis B vaccine, pediatric or pediatric/adolescent dosage Zack Holder MD Work Phone: [facility] 12-20-2004 varicella virus vaccine Zack Holder MD Work Phone: [facility] 09-23-2004 poliovirus vaccine, inactivated Zack Holder MD Work Phone: [facility] 07-01-2004 diphtheria, tetanus toxoids and acellular pertussis vaccine Zack Holder MD Work Phone: [facility] 07-01-2004 haemophilus influenz ae type b vaccine, PRP-OMP conjugate Zack Holder MD Work Phone: [facility] 07-01-2004 pneumococcal conjuga te vaccine, 13 valent Zack Holder MD Work Phone: [facility] 04-13-2004 diphtheria, tetanus toxoids and acellular pertussis vaccine Zack Holder MD Work Phone: [facility] 04-13-2004 haemophilus influenz ae type b vaccine, PRP-OMP conjugate Zack Holder MD Work Phone: [facility] 04-13-2004 pneumococcal conjuga te vaccine, 13 valent Zack Holder MD Work Phone: [facility] 04-13-2004 poliovirus vaccine, inactivated Zack Holder MD Work Phone: [facility] 02-16-2004 diphtheria, tetanus toxoids and acellular pertussis vaccine Zack Holder MD Work Phone: [facility] 02-16-2004 haemophilus influenz ae type b vaccine, PRP-OMP conjugate Zack Holder MD Work Phone: [facility] 02-16-2004 hepatitis B vaccine, pediatric or pediatric/adolescent dosage Zack Holder MD Work Phone: [facility] 02-16-2004 pneumococcal conjuga te vaccine, 13 valent Zack Holder MD Work Phone: [facility] 02-16-2004 poliovirus vaccine, inactivated Zack Holder MD Work Phone: [facility] Payers Date Payer Category Payer Private Health Insurance [id number] 2023 Unknown [id number] 2018 Unknown MMO MMO [employer] [id number] 2018-Present [phone] [address] [place] [id number] PPO [id number] 2018 Unknown MMO MMO [employer] PPO [id number] 2018-Present [phone] [address] [place] [address] PPO [id number] Social History Date Type Detail Facility Start: 02-20-2012 End: 08-24-2022 Tobacco smoking status NHIS Never smoked tobacco [facility] Start: 02-20-2012 End: 08-24-2022 Tobacco use and exposure Smokeless tobacco non-user [facility] Start: 11-26-2021 End: 11-13-2024 Alcohol intake Current non-drinker of alcohol (finding) [facility] Start: 2003 Sex Assigned At Not on file C [facility] Start: 03-25-2020 End: 12-20-2021 Exposure to SARS-CoV-2 (event) Not sure [facility] Start: 12-20-2021 History SDOH Alcohol Frequency 1 [facility] Start: 12-20-2021 History SDOH Alcohol Std Drinks 98 [facility] Start: 12-20-2021 History SDOH Social Connections Phone 5 [facility] Start: 12-20-2021 History SDOH Social Connections Jainism 3 [facility] Start: 12-20-2021 History SDOH Social Connections Living 7 [facility] Start: 12-20-2021 History SDOH Physica l Activity DPW 6 [facility] Start: 12-20-2021 History SDOH Physica l Activity MPS 15 [facility] Start: 12-20-2021 History SDOH Transport Med 2 [facility] Start: 12-20-2021 End: 08-04-2023 History of Social function [facility] Start: 12-20-2021 End: 08-04-2023 Social connection and isolation panel [facility] Do you belong to any clubs or organizations such as bahai groups, unions, fraternal or athletic groups, or school groups? Yes [facility] Are you now , , , , never or living with a partner? Never [facility] How often to you hav e a drink containing alcohol? Never [facility] How many standard dr inks containing alcohol do you have on a typical day? Patient declined [facility] Do you feel stress - tense, restless, nervous, or anxious, or unable to sleep at night because your mind is troubled all the time - these days [OSQ] To some extent [facility] (I/We) worried [facility] (my/our) food would run out before (I/we) got money to buy more. Never true [facility] At any time in the p ast 12 months, were you homeless or living in [place] [facility] [including now]? No [facility] Functional Status Date Assessment Result Facility 05-13-2014 Are you deaf, or do you have serious difficulty hearing No 05/13/2014 9:00 AM Jacy Corey Cma No [facility] 05-13-2014 Are you blind, or do you have serious difficulty seeing, even when wearing glasses No 05/13/2014 9:00 AM Jacy Corey Cma No [facility] 05-13-2014 Do you have serious difficulty walking or climbing stairs No 05/13/2014 9:00 AM Jacy Corey Cma No [facility] 05-13-2014 Do you have difficul ty dressing or bathing No 05/13/2014 9:00 AM Jacy Corey Cma No [facility] Mental Status Date Assessment Result Facility 05-13-2014 Because of a physica l, mental, or emotional condition, do you have serious difficulty concentrating, remembering, or making decisions No 05/13/2014 9:00 AM Jacy Corey Cma No [facility] Clinical Notes 04-07-2017 to 11-13-2024 Patient InstructionsClarissa Arthur APRN.RIA - 11/13/2024 1:54 PM Erin Torres APRN.CNP - 04/27/2024 1:58 PM Ines Hurley PA - 03/24/2024 8:32 AM EDTPatient Instructions Note Date & Type Note Facility 11-13-2024 Instructions Clarissa Arthur APRN.RIA - 11/13/2024 1:56 PM EDT 1. Sore throat (J02.9) 2. Viral syndrome (B34.9) - Onset of symptoms yesterday, including sore throat, fever, arthralgia, and fatigue. - Physical exam reveals tonsillar hypertrophy. - Group A molecular strep test negative. - Symptoms consistent with viral etiology. - Advised supportive care: saline gargles, adequate hydration, and use of acetaminophen or ibuprofen for analgesia and antipyresis. - Educated on typical viral course, with symptom resolution expected within 4-5 days. - Instructed to return for further evaluation if symptoms persist for 7 days. - Gargle with warm salt water several times a day to soothe your throat. - Drink plenty of fluids to stay hydrated. - Rest as much as possible to help your body fight the virus. - Take Tylenol (acetaminophen) or Advil (ibuprofen) as needed for fever and aches. - If you re still feeling this sick after 7 days, please come back for further evaluation and testing. documented in this encounter [facility] 11-13-2024 Note HNO ID: [id number] Author: CLARISSA ARTHUR APRN.RIA Service: ? Author Type: Nurse Practitioner Type: Progress Notes Filed: 11/13/2024 13:56 Note Text: [facility] Subjective Chris Quach is a 18 year old male. Patient presents with: Sore Throat: ST and fever x 1 day Sore Throat Sore Throat: - Onset yesterday. - Reports huge tonsils, but denies dyspnea or difficulty swallowing. - Denies rhinorrhea, cough, congestion, or otalgia. - Took Advil for symptom relief. Fever: - Subjective fever last night; current temperature 100.4 degreeF. - Denies known exposure to sick contacts. Arthralgia: - Describes joint pain as achy and arthritic, particularly in the hands. Fatigue: - Reports significant fatigue, sleeping until 10:30 AM, which is unusual for him. - Typically wakes up between 04:00 and 06:00 due to work schedule. Review of Systems HENT: Positive for sore throat. Constitutional: (+) fever, (+) fatigue Ears/Nose/Mouth/Throat: (+) sore throat, (+) tonsillar swelling, (-) rhinorrhea, (-) nasal congestion, (-) cough, (-) ear pain Respiratory: (-) dyspnea Musculoskeletal: (+) joint pain, (+) myalgia Objective BP 128/78 Pulse 107 Temp (!) 38 ?C (100.4 ?F) (Tympanic) Resp 16 Wt 109.6 kg (241 lb 10 oz) SpO2 98% PAST MEDICAL HISTORY Diagnosis Date - Eye injury 12/10/2011 Cut right eye with scissors; repair - NEGATIVE MEDICAL HISTORY Normal color vision - Varicella 09/05/2016 PAST SURGICAL HISTORY Procedure Laterality Date - CIRCUMCISION W/CLAMP/OTH DEV W/BLOCK at - HERNIA REPAIR HX age 21 months-bilateral - REPAIR OF HYDROCELE 21 mos bilat ALLERGIES Cephalosporins and Seasonal Allergies MEDICATIONS - Fkjgtxvkeaxpyqi-Nuteczwds-GL (BROMFED DM) 2-30-10 mg/5 mL syrup Take 10 mL by mouth four times a day as needed. (Patient not taking: Reported on 04/27/2024) FAMILY HISTORY Problem Relation Age of Onset - Allergies Mother - None Father - Diabetes Father Cousins-junenile diabetes - Cancer Father Great aunt-small cell lung - Heart Father Paternal/ Maternal Side - No Known Problems Sister - No Known Problems Maternal Grandmother - No Known Problems Maternal Grandfather - No Known Problems Paternal Grandmother - No Known Problems Paternal Grandfather Social History Tobacco Use - Smoking status: Never - Smokeless tobacco: Never Vaping Use - Vaping status: Never Used Substance Use Topics - Alcohol use: No - Drug use: No Physical Exam Vitals and nursing note reviewed. Constitutional: General: He is not in acute distress. Appearance: Normal appearance. He is not ill-appearing. HENT: Right Ear: Tympanic membrane, ear canal and external ear normal. Left Ear: Tympanic membrane, ear canal and external ear normal. Nose: Nose normal. Mouth/Throat: Mouth: Mucous membranes are moist. Pharynx: Oropharynx is clear. Uvula midline. Posterior oropharyngeal erythema present. No pharyngeal swelling, oropharyngeal exudate or uvula swelling. Tonsils: No tonsillar exudate. 2+ on the right. 2+ on the left. Cardiovascular: Rate and Rhythm: Normal rate and regular rhythm. Heart sounds: Normal heart sounds. Pulmonary: Effort: Pulmonary effort is normal. No respiratory distress. Breath sounds: Normal breath sounds. No wheezing or rales. Skin: General: Skin is warm and dry. Findings: No erythema or rash. Neurological: Mental Status: He is alert. General: Mild fever. HEENT: Tonsils enlarged; heart regular rate and rhythm; lungs clear to auscultation. {1. Sore throat (J02.9) 2. Viral syndrome (B34.9) - Onset of symptoms yesterday, including sore throat, fever, arthralgia, and fatigue. - Physical exam reveals tonsillar hypertrophy. - Group A molecular strep test negative. - Symptoms consistent with viral etiology. - Advised supportive care: saline gargles, adequate hydration, and use of acetaminophen or ibuprofen for analgesia and antipyresis. - Educated on typical viral course, with symptom resolution expected within 4-5 days. - Instructed to return for further evaluation if symptoms persist for 7 days. - Follow-up with your PCP in 3-5 days if symptoms have not improved or sooner if symptoms worsen - Discussed red flags and need for immediate medical evaluation if any occur. - Discussed supportive care treatment with fluids, rest and analgesia. - Discussed expected course of illness Clarissa Arthur APRN.OPTOMECHANICAL ENGINEER and Recording using [employer] software for draft documentation of the visit was discussed with the patient/authorized medical representative; all questions welcomed and answered. Patient/authorized medical representative agreed to proceed Disposition The patient was discharged. OTC Medications were advised: Procedures [facility] 11-13-2024 History of Present illness Narrative [facility] Subjective Chris Quach is a 18 year old male. Patient presents with: Sore Throat: ST and fever x 1 day Sore Throat Sore Throat: - Onset yesterday. - Reports huge tonsils, but denies dyspnea or difficulty swallowing. - Denies rhinorrhea, cough, congestion, or otalgia. - Took Advil for symptom relief. Fever: - Subjective fever last night; current temperature 100.4 degreeF. - Denies known exposure to sick contacts. Arthralgia: - Describes joint pain as achy and arthritic, particularly in the hands. Fatigue: - Reports significant fatigue, sleeping until 10:30 AM, which is unusual for him. - Typically wakes up between 04:00 and 06:00 due to work schedule. Review of Systems HENT: Positive for sore throat. Constitutional: (+) fever, (+) fatigue Ears/Nose/Mouth/Throat: (+) sore throat, (+) tonsillar swelling, (-) rhinorrhea, (-) nasal congestion, (-) cough, (-) ear pain Respiratory: (-) dyspnea Musculoskeletal: (+) joint pain, (+) myalgia Objective BP 128/78 Pulse 107 Temp (!) 38 C (100.4 F) (Tympanic) Resp 16 Wt 109.6 kg (241 lb 10 oz) SpO2 98% PAST MEDICAL HISTORY Diagnosis Date Eye injury 12/10/2011 Cut right eye with scissors; repair NEGATIVE MEDICAL HISTORY Normal color vision Varicella 09/05/2016 PAST SURGICAL HISTORY Procedure Laterality Date CIRCUMCISION W/CLAMP/OTH DEV W/BLOCK at HERNIA REPAIR HX age 21 months-bilateral REPAIR OF HYDROCELE 21 mos bilat ALLERGIES Cephalosporins and Seasonal Allergies MEDICATIONS Xyjkvaimjkkxxce-Vnccsrpuz-VX (BROMFED DM) 2-30-10 mg/5 mL syrup Take 10 mL by mouth four times a day as needed. (Patient not taking: Reported on 04/27/2024) FAMILY HISTORY Problem Relation Age of Onset Allergies Mother None Father Diabetes Father Cousins-junenile diabetes Cancer Father Great aunt-small cell lung Heart Father Paternal/ Maternal Side No Known Problems Sister No Known Problems Maternal Grandmother No Known Problems Maternal Grandfather No Known Problems Paternal Grandmother No Known Problems Paternal Grandfather Social History Tobacco Use Smoking status: Never Smokeless tobacco: Never Vaping Use Vaping status: Never Used Substance Use Topics Alcohol use: No Drug use: No Physical Exam Vitals and nursing note reviewed. Constitutional: General: He is not in acute distress. Appearance: Normal appearance. He is not ill-appearing. HENT: Right Ear: Tympanic membrane, ear canal and external ear normal. Left Ear: Tympanic membrane, ear canal and external ear normal. Nose: Nose normal. Mouth/Throat: Mouth: Mucous membranes are moist. Pharynx: Oropharynx is clear. Uvula midline. Posterior oropharyngeal erythema present. No pharyngeal swelling, oropharyngeal exudate or uvula swelling. Tonsils: No tonsillar exudate. 2+ on the right. 2+ on the left. Cardiovascular: Rate and Rhythm: Normal rate and regular rhythm. Heart sounds: Normal heart sounds. Pulmonary: Effort: Pulmonary effort is normal. No respiratory distress. Breath sounds: Normal breath sounds. No wheezing or rales. Skin: General: Skin is warm and dry. Findings: No erythema or rash. Neurological: Mental Status: He is alert. General: Mild fever. HEENT: Tonsils enlarged; heart regular rate and rhythm; lungs clear to auscultation. {1. Sore throat (J02.9) 2. Viral syndrome (B34.9) - Onset of symptoms yesterday, including sore throat, fever, arthralgia, and fatigue. - Physical exam reveals tonsillar hypertrophy. - Group A molecular strep test negative. - Symptoms consistent with viral etiology. - Advised supportive care: saline gargles, adequate hydration, and use of acetaminophen or ibuprofen for analgesia and antipyresis. - Educated on typical viral course, with symptom resolution expected within 4-5 days. - Instructed to return for further evaluation if symptoms persist for 7 days. - Follow-up with your PCP in 3-5 days if symptoms have not improved or sooner if symptoms worsen - Discussed red flags and need for immediate medical evaluation if any occur. - Discussed supportive care treatment with fluids, rest and analgesia. - Discussed expected course of illness Clarissa Arthur APRN.OPTOMECHANICAL ENGINEER and Recording using [employer] software for draft documentation of the visit was discussed with the patient/authorized medical representative; all questions welcomed and answered. Patient/authorized medical representative agreed to proceed Disposition The patient was discharged. OTC Medications were advised: Procedures documented in this encounter [facility] 04-27-2024 Note HNO ID: [id number] Author: ERIN JACOBS APRN.OPTOMECHANICAL ENGINEER Service: ? Author Type: Nurse Practitioner Type: Progress Notes Filed: 04/27/2024 14:14 Note Text: CC: Patient presents with: Sore Throat: X3 days HPI: Chris Quach is a 18 year old male who presents to the office with complaint of head congestion and sore throat for a few days. Symptoms are staying the same. Associated symptoms includes sore throat. Denies fever, nausea, vomiting , and diarrhea. Treatments tried include nothing so far. with no relief of symptoms. Sick contacts: unknown. History of asthma, frequent episodes of bronchitis, chronic bronchitis, bronchiectasis or COPD: No Smoker: No Seasonal/environmental allergies: No The ROS is otherwise negative. The patient's pmh, medications, allergies, and past visits are reviewed. PHYSICAL EXAM: BP 109/56 Pulse 60 Temp 36.3 ?C (97.3 ?F) Resp 18 Wt 106.7 kg (235 lb 3.7 oz) SpO2 96% General appearance: alert, cooperative, pleasant, in no acute distress Head: Normocephalic Eyes: EOM's intact, conjunctiva pink and moist, no icterus, sclera white, non-injected Ears: Right ear: External ear/canal- Normal, TM - clear with good landmarks. Left ear: External ear/canal- Normal, TM - clear with good landmarks Oropharynx:moderate erythema, without exudates present, plus 2 Heart: Negative. RRR without obvious murmur, gallop, or rubs. No ectopy. Lungs: clear to auscultation, without rales or wheeze, good air exchange PAST MEDICAL HISTORY Diagnosis Date Eye injury 12/10/2011 Cut right eye with scissors; repair NEGATIVE MEDICAL HISTORY Normal color vision Varicella 09/05/2016 PAST SURGICAL HISTORY Procedure Laterality Date CIRCUMCISION W/CLAMP/OTH DEV W/BLOCK at HERNIA REPAIR HX age 21 months-bilateral REPAIR OF HYDROCELE 21 mos bilat ALLERGIES Cephalosporins and Seasonal Allergies MEDICATIONS Tctqtvqfgopyyzc-Vnhrqluup-ON (BROMFED DM) 2-30-10 mg/5 mL syrup Take 10 mL by mouth four times a day as needed. (Patient not taking: Reported on 04/27/2024) FAMILY HISTORY Problem Relation Age of Onset Allergies Mother None Father Diabetes Father Cousins-junenile diabetes Cancer Father Great aunt-small cell lung Heart Father Paternal/ Maternal Side No Known Problems Sister No Known Problems Maternal Grandmother No Known Problems Maternal Grandfather No Known Problems Paternal Grandmother No Known Problems Paternal Grandfather Social History Tobacco Use Smoking status: Never Smokeless tobacco: Never Vaping Use Vaping status: Never Used Substance Use Topics Alcohol use: No Drug use: No ASSESSMENT/PLAN: 1. Sore throat - ICD9: 462, ICD10: J02.9 - STREP A MOLECULAR (POC) - neg Prednisone for throat discomfort related to inflamation Prescription instructions reviewed with patient as applicable. Potential red flag symptoms discussed with the patient. Reviewed appropriate action plan to take if red flag symptoms occur. Patient agreeable to treatment plan. Will follow up with PCP if persists or worsens for possible mono or further testing. Erin Jacobs APRN.[facility] 04-27-2024 History of Present illness Narrative CC: Patient presents with: Sore Throat: X3 days HPI: Chrsi Quach is a 18 year old male who presents to the office with complaint of head congestion and sore throat for a few days. Symptoms are staying the same. Associated symptoms includes sore throat. Denies fever, nausea, vomiting , and diarrhea. Treatments tried include nothing so far. with no relief of symptoms. Sick contacts: unknown. History of asthma, frequent episodes of bronchitis, chronic bronchitis, bronchiectasis or COPD: No Smoker: No Seasonal/environmental allergies: No The ROS is otherwise negative. The patient's pmh, medications, allergies, and past visits are reviewed. PHYSICAL EXAM: BP 109/56 Pulse 60 Temp 36.3 C (97.3 F) Resp 18 Wt 106.7 kg (235 lb 3.7 oz) SpO2 96% General appearance: alert, cooperative, pleasant, in no acute distress Head: Normocephalic Eyes: EOM's intact, conjunctiva pink and moist, no icterus, sclera white, non-injected Ears: Right ear: External ear/canal- Normal, TM - clear with good landmarks. Left ear: External ear/canal- Normal, TM - clear with good landmarks Oropharynx:moderate erythema, without exudates present, plus 2 Heart: Negative. RRR without obvious murmur, gallop, or rubs. No ectopy. Lungs: clear to auscultation, without rales or wheeze, good air exchange PAST MEDICAL HISTORY Diagnosis Date Eye injury 12/10/2011 Cut right eye with scissors; repair NEGATIVE MEDICAL HISTORY Normal color vision Varicella 09/05/2016 PAST SURGICAL HISTORY Procedure Laterality Date CIRCUMCISION W/CLAMP/OTH DEV W/BLOCK at HERNIA REPAIR HX age 21 months-bilateral REPAIR OF HYDROCELE 21 mos bilat ALLERGIES Cephalosporins and Seasonal Allergies MEDICATIONS Bmhatlsfvuovkne-Qeetysnpj-PT (BROMFED DM) 2-30-10 mg/5 mL syrup Take 10 mL by mouth four times a day as needed. (Patient not taking: Reported on 04/27/2024) FAMILY HISTORY Problem Relation Age of Onset Allergies Mother None Father Diabetes Father Cousins-junenile diabetes Cancer Father Great aunt-small cell lung Heart Father Paternal/ Maternal Side No Known Problems Sister No Known Problems Maternal Grandmother No Known Problems Maternal Grandfather No Known Problems Paternal Grandmother No Known Problems Paternal Grandfather Social History Tobacco Use Smoking status: Never Smokeless tobacco: Never Vaping Use Vaping status: Never Used Substance Use Topics Alcohol use: No Drug use: No ASSESSMENT/PLAN: 1. Sore throat - ICD9: 462, ICD10: J02.9 - STREP A MOLECULAR (POC) - neg Prednisone for throat discomfort related to inflamation Prescription instructions reviewed with patient as applicable. Potential red flag symptoms discussed with the patient. Reviewed appropriate action plan to take if red flag symptoms occur. Patient agreeable to treatment plan. Will follow up with PCP if persists or worsens for possible mono or further testing. Erin Jacobs APRN.[facility] documented in this encounter [facility] 03-24-2024 Note HNO ID: [id number] Author: INES CABRERA PA Service: ? Author Type: Physician Research Scientist Type: Progress Notes Filed: 03/24/2024 08:39 Note Text: This note was created using [employer]. Subjective Chris Quach is a 18 year old male. HPI 18-year-old male presents for sore throat, nasal congestion, chest congestion x 1 month. Patient states that he has been having on and off symptoms for the past month. He has constant nasal congestion and sore throat. States his tonsils look swollen. He states he has had chest congestion and productive cough. His left ear felt clogged last night. He has not noted any fevers, but has had chills and sweating. He has also had bodyaches. No vomiting or diarrhea. He did try DayQuil for the first week, but it did not help at all. No other complaint. PAST MEDICAL HISTORY Diagnosis Date Eye injury 12/10/2011 Cut right eye with scissors; repair NEGATIVE MEDICAL HISTORY Normal color vision Varicella 09/05/2016 PAST SURGICAL HISTORY Procedure Laterality Date CIRCUMCISION W/CLAMP/OTH DEV W/BLOCK at HERNIA REPAIR HX age 21 months-bilateral REPAIR OF HYDROCELE 21 mos bilat ALLERGIES Cephalosporins and Seasonal Allergies MEDICATIONS No prescriptions on file. FAMILY HISTORY Problem Relation Age of Onset Allergies Mother None Father Diabetes Father Cousins-junenile diabetes Cancer Father Great aunt-small cell lung Heart Father Paternal/ Maternal Side No Known Problems Sister No Known Problems Maternal Grandmother No Known Problems Maternal Grandfather No Known Problems Paternal Grandmother No Known Problems Paternal Grandfather Social History Tobacco Use Smoking status: Never Smokeless tobacco: Never Vaping Use Vaping status: Never Used Substance Use Topics Alcohol use: No Drug use: No Review of Systems Constitutional: Positive for chills. Negative for fever. HENT: Positive for congestion, ear pain, sinus pressure and sore throat. Respiratory: Positive for cough. Negative for shortness of breath. Gastrointestinal: Negative for diarrhea and vomiting. Musculoskeletal: Positive for myalgias. Objective BP 120/80 Pulse 60 Temp 36.6 ?C (97.9 ?F) Resp 20 Wt 106.9 kg (235 lb 10.8 oz) SpO2 98% Physical Exam Vitals and nursing note reviewed. Constitutional: General: He is not in acute distress. Appearance: Normal appearance. He is not toxic-appearing. HENT: Right Ear: Tympanic membrane and ear canal normal. Left Ear: Tympanic membrane and ear canal normal. Nose: Mucosal edema and congestion present. Mouth/Throat: Mouth: Mucous membranes are moist. Pharynx: Uvula midline. Posterior oropharyngeal erythema present. Tonsils: No tonsillar exudate. 2+ on the right. 2+ on the left. Eyes: Conjunctiva/sclera: Conjunctivae normal. Cardiovascular: Rate and Rhythm: Normal rate and regular rhythm. Pulmonary: Effort: Pulmonary effort is normal. Breath sounds: Normal breath sounds. No wheezing, rhonchi or rales. Skin: General: Skin is warm and dry. Neurological: Mental Status: He is alert. Assessment and Plan ASSESSMENT/PLAN: 1. Strep pharyngitis - ICD9: 034.0, ICD10: J02.0 (primary diagnosis) - suspect strep - Group A strep molecular testing positive - Amoxicillin for 10 days. - Discussed supportive care treatment with fluids, rest and analgesia. - The patient may also use warm salt water gargles, throat lozenges and/or OTC throat spray as needed. 2. Sore throat - ICD9: 462, ICD10: J02.9 - STREP A MOLECULAR (POC) 3. URI, acute - ICD9: 465.9, ICD10: J06.9 - Discussed viral etiology and rationale for treatment. - Symptomatic treatment with prn analgesia - Supportive care with fluids and rest -Rx for Bromfed Diagnosis and treatment plan were discussed and questions were answered to the patient's satisfaction. Pt acknowledged understanding of concepts and follow up plan. Specific signs and symptoms that would indicate the need for higher level of care were discussed in detail warranting prompt ER evaluation. SARAHI Valle [facility] 03-24-2024 History of Present illness Narrative This note was created using NoteWriter. Subjective Chris Quach is a 18 year old male. HPI 18-year-old male presents for sore throat, nasal congestion, chest congestion x 1 month. Patient states that he has been having on and off symptoms for the past month. He has constant nasal congestion and sore throat. States his tonsils look swollen. He states he has had chest congestion and productive cough. His left ear felt clogged last night. He has not noted any fevers, but has had chills and sweating. He has also had bodyaches. No vomiting or diarrhea. He did try DayQuil for the first week, but it did not help at all. No other complaint. PAST MEDICAL HISTORY Diagnosis Date Eye injury 12/10/2011 Cut right eye with scissors; repair NEGATIVE MEDICAL HISTORY Normal color vision Varicella 09/05/2016 PAST SURGICAL HISTORY Procedure Laterality Date CIRCUMCISION W/CLAMP/OTH DEV W/BLOCK at HERNIA REPAIR HX age 21 months-bilateral REPAIR OF HYDROCELE 21 mos bilat ALLERGIES Cephalosporins and Seasonal Allergies MEDICATIONS No prescriptions on file. FAMILY HISTORY Problem Relation Age of Onset Allergies Mother None Father Diabetes Father Cousins-junenile diabetes Cancer Father Great aunt-small cell lung Heart Father Paternal/ Maternal Side No Known Problems Sister No Known Problems Maternal Grandmother No Known Problems Maternal Grandfather No Known Problems Paternal Grandmother No Known Problems Paternal Grandfather Social History Tobacco Use Smoking status: Never Smokeless tobacco: Never Vaping Use Vaping status: Never Used Substance Use Topics Alcohol use: No Drug use: No Review of Systems Constitutional: Positive for chills. Negative for fever. HENT: Positive for congestion, ear pain, sinus pressure and sore throat. Respiratory: Positive for cough. Negative for shortness of breath. Gastrointestinal: Negative for diarrhea and vomiting. Musculoskeletal: Positive for myalgias. Objective BP 120/80 Pulse 60 Temp 36.6 C (97.9 F) Resp 20 Wt 106.9 kg (235 lb 10.8 oz) SpO2 98% Physical Exam Vitals and nursing note reviewed. Constitutional: General: He is not in acute distress. Appearance: Normal appearance. He is not toxic-appearing. HENT: Right Ear: Tympanic membrane and ear canal normal. Left Ear: Tympanic membrane and ear canal normal. Nose: Mucosal edema and congestion present. Mouth/Throat: Mouth: Mucous membranes are moist. Pharynx: Uvula midline. Posterior oropharyngeal erythema present. Tonsils: No tonsillar exudate. 2+ on the right. 2+ on the left. Eyes: Conjunctiva/sclera: Conjunctivae normal. Cardiovascular: Rate and Rhythm: Normal rate and regular rhythm. Pulmonary: Effort: Pulmonary effort is normal. Breath sounds: Normal breath sounds. No wheezing, rhonchi or rales. Skin: General: Skin is warm and dry. Neurological: Mental Status: He is alert. Assessment and Plan ASSESSMENT/PLAN: 1. Strep pharyngitis - ICD9: 034.0, ICD10: J02.0 (primary diagnosis) - suspect strep - Group A strep molecular testing positive - Amoxicillin for 10 days. - Discussed supportive care treatment with fluids, rest and analgesia. - The patient may also use warm salt water gargles, throat lozenges and/or OTC throat spray as needed. 2. Sore throat - ICD9: 462, ICD10: J02.9 - STREP A MOLECULAR (POC) 3. URI, acute - ICD9: 465.9, ICD10: J06.9 - Discussed viral etiology and rationale for treatment. - Symptomatic treatment with prn analgesia - Supportive care with fluids and rest -Rx for Bromfed Diagnosis and treatment plan were discussed and questions were answered to the patient's satisfaction. Pt acknowledged understanding of concepts and follow up plan. Specific signs and symptoms that would indicate the need for higher level of care were discussed in detail warranting prompt ER evaluation. SARAHI Valel documented in this encounter [facility] 11-09-2023 History of Present illness Narrative Subjective HPI Nontoxic-appearing male presents urgent care chief complaint pharyngitis. Duration of symptoms 3 days. Associated symptoms sore throat. Concerned about possible strep throat. Presents today for evaluation. No difficulty swallowing his secretions decreased range of motion of neck. Denies any fever body aches chills productive cough chest pain shortness of breath pleuritic pain hemoptysis nausea vomiting abdominal pain change in bowel or bladder habits. Past medical history prescription medication use and allergies reviewed. .Patient presents with: Sore Throat: X3 days PAST MEDICAL HISTORY Diagnosis Date Eye injury 12/10/2011 Cut right eye with scissors; repair NEGATIVE MEDICAL HISTORY Normal color vision Varicella 09/05/2016 PAST SURGICAL HISTORY Procedure Laterality Date CIRCUMCISION W/CLAMP/OTH DEV W/BLOCK at HERNIA REPAIR HX age 21 months-bilateral REPAIR OF HYDROCELE 21 mos bilat ALLERGIES Cephalosporins and Seasonal Allergies MEDICATIONS DM/p-ephed/acetaminoph/doxylam (NYQUIL ORAL) Take by mouth. FAMILY HISTORY Problem Relation Age of Onset Allergies Mother None Father Diabetes Father Cousins-junenile diabetes Cancer Father Great aunt-small cell lung Heart Father Paternal/ Maternal Side No Known Problems Sister No Known Problems Maternal Grandmother No Known Problems Maternal Grandfather No Known Problems Paternal Grandmother No Known Problems Paternal Grandfather Social History Tobacco Use Smoking status: Never Smokeless tobacco: Never Vaping Use Vaping Use: Never used Substance Use Topics Alcohol use: No Drug use: No BP 108/60 Pulse 66 Temp 36.2 C (97.1 F) Resp 16 Wt 110.7 kg (244 lb 0.8 oz) SpO2 96% Review of Systems Constitutional: Negative for chills, fever and malaise/fatigue. HENT: Positive for sore throat. Negative for congestion, ear discharge, ear pain and sinus pain. Eyes: Negative for blurred vision, pain, discharge and redness. Respiratory: Negative for cough, hemoptysis, sputum production, shortness of breath, wheezing and stridor. Cardiovascular: Negative for chest pain. Gastrointestinal: Negative for abdominal pain, diarrhea, nausea and vomiting. Musculoskeletal: Negative for myalgias. Skin: Negative for itching and rash. Neurological: Negative for dizziness and headaches. Objective Physical Exam Constitutional: General: He is not in acute distress. Appearance: He is not diaphoretic. HENT: Head: Normocephalic. Jaw: No trismus, tenderness, swelling or pain on movement. Mouth/Throat: Mouth: Mucous membranes are moist. Pharynx: Oropharynx is clear. Uvula midline. Posterior oropharyngeal erythema present. No pharyngeal swelling, oropharyngeal exudate or uvula swelling. Tonsils: Tonsillar exudate present. No tonsillar abscesses. 2+ on the right. 2+ on the left. Eyes: Conjunctiva/sclera: Conjunctivae normal. Pupils: Pupils are equal, round, and reactive to light. Cardiovascular: Rate and Rhythm: Normal rate and regular rhythm. Heart sounds: Normal heart sounds. Pulmonary: Effort: Pulmonary effort is normal. No tachypnea, accessory muscle usage or respiratory distress. Breath sounds: Normal breath sounds. No stridor. No wheezing, rhonchi or rales. Abdominal: General: There is no distension. Palpations: Abdomen is soft. Tenderness: There is no abdominal tenderness. There is no guarding or rebound. Musculoskeletal: Cervical back: Normal range of motion and neck supple. No edema, erythema, rigidity or tenderness. No pain with movement. Normal range of motion. Lymphadenopathy: Cervical: No cervical adenopathy. Skin: General: Skin is warm and dry. Neurological: Mental Status: He is alert and oriented to person, place, and time. ASSESSMENT/PLAN: 1. Sore throat - ICD9: 462, ICD10: J02.9 - STREP A MOLECULAR (POC) - MONOTEST, INFECTIOUS MONO Strep test negative. Diagnosed with viral pharyngitis. Patient was educated on supportive therapies. Patient will follow up with primary care provider as needed. Patient was instructed to immediately proceed to emergency room for any new, worsening, or symptoms lasting longer than anticipated. The patient's clinical presentation is otherwise unremarkable at this time. Based on exam and clinical finding, the patient is stable for discharge. Plan of care was discussed with patient. Patient verbalizes understanding and agrees to plan of care. This note was generated using [employer] software. It may contain errors in wording, punctuation, or spelling. Oliver Cartagena APRN.OPTOMECHANICAL ENGINEER documented in this encounter [facility] 08-04-2023 Instructions Flor Child MD - 08/04/2023 3:36 PM EST [address] [place] [address] Call our [place] office [phone] Mon: 8:00am - 4:30pm Tue: 8:00am - 4:30pm Wed: 8:00am - 4:30pm Thur: 8:00am - 4:30pm Fri: 8:00am - 4:30pm Sat: 8:00am - 11:00am documented in this encounter [facility] 08-04-2023 History of Present illness Narrative PEDIATRIC SICK VISIT SUBJECTIVE: Chris Quach is a 17 year old unaccompanied. History was obtained from: patient Patient presenting with a lump on his neck. He has had the lump for at least 2-3 years, but it has never bothered him. He has never been seen for it before. Parents noticed it may have gotten a little bigger over the last few weeks. They recommended getting it evaluated. It has never been erythematous or tender. He does not think it has changed in size. No fevers. No sick symptoms. HISTORY: ACTIVE PROBLEM LIST Pain in Right Elbow PAST MEDICAL HISTORY Diagnosis Date Eye injury 12/10/2011 Cut right eye with scissors; repair NEGATIVE MEDICAL HISTORY Normal color vision Varicella 09/05/2016 PAST SURGICAL HISTORY Procedure Laterality Date CIRCUMCISION W/CLAMP/OTH DEV W/BLOCK at HERNIA REPAIR HX age 21 months-bilateral REPAIR OF HYDROCELE 21 mos bilat Allergies: ALLERGIES Allergen Reactions Cephalosporins Hives, Diarrhea Seasonal Allergies Other: See Comments Runny nose, clears throat a lot Medications: DM/p-ephed/acetaminoph/doxylam (NYQUIL ORAL) Take by mouth. OBJECTIVE: Pulse 72 Temp 36.4 C (97.5 F) (Temporal) Resp 16 Wt 103.7 kg (228 lb 9.6 oz) General: alert and active in no apparent distress Eyes: conjunctiva clear Ears: TMs translucent bilaterally, normal landmarks noted Nose: no rhinorrhea, no mucosal edema OP: no lesions, no erythema Neck: supple, no adenopathy, 1 cm cyst right lateral neck without erythema or drainage below ear, not painful Lungs: clear to auscultation bilaterally, good air exchange, no retractions CVS: Normal rate, regular rhythm, no murmur Ears: Cerumen obscures TM: bilaterally I removed impacted cerumen from the bilateral ear(s) due to inability to visualize the TM(s). Method of removal was by using an otoscope and curette. Procedure was moderately difficult. Ear lavage also completed bilaterally by nursing. See below for documentation. Ear Lavage: Bilateral ears flushed with warm water/h2o2. Large amount of cerumen removed from right ear. Very min able from left ear. Patient tolerated procedure well. Examination post-cleaning: Right TM clear with normal light reflex, no bulging; Left TM clear with normal light reflex, no bulging, slight erythema noted within canal ASSESSMENT/PLAN: Encounter Diagnosis ICD-10-CM 1. Bilateral impacted cerumen H61.23 2. Dermoid cyst of neck D36.7 CONSULT TO GENERAL SURGERY Flor Child MD documented in this encounter [facility] 12-20-2021 History of Present illness Narrative Episode Visit Count: 3 Therapist That Will Oversee The Plan Of Care: Lynda Osorio Start of Care Date: 12/06/21 Onset Date: 07/09/21 Plan of Care Certification Date: 12/06/21 Next Certification Due Date: 01/10/22 REHABILITATION AND SPORTS THERAPY PHYSICAL THERAPY TREATMENT NOTE ASSESSMENT: Chris Quach tolerated the session with decreased endurance, fatigue and decreased symptoms. He demonstrated improvements in reduced elbow pain and requires only a few cues to correct technique with scapular strengthening exercises. He fatigues quickly with prone and closed chain exercises today. Demonstrates more weakness R ER compared to the L shoulder. The patient will continue to benefit from ongoing skilled physical therapy to progress toward set goals. PLAN FOR NEXT VISIT: Continue core stabilization and scapular stabilization strengthening. Pt. has purchased bands, and would benefit from scaplular stabilization strengthening exercises as well as correcting technique. SUBJECTIVE: Patient Reason for Visit: Denies pain, reports that he has been able to pitch without pain. Pain: Pain Pain Level: 0 Description: Sharp Post Treatment Pain Post Treatment Pain Level: 0 Post Treatment Pain Location: Elbow - Right OBJECTIVE MEASURES WITH LEVEL OF FUNCTION: TREATMENT: Therapeutic Exercise: 1: Prone lying T 2x10 2: Prone lying Y 2x10 3: Prone lying I 2x10 4: wall push ups, cues elbows >45 shoulder abduction 2x10, pause at the bottom 5: scap push ups on wall 2x10 6: alt wall shoulder taps 2x20 7: ball on wall push ups 2x10 8: plankl on elbows on wall 3x30 sec 9: *ER GTB 2x12 each side 10: *ER hold 30 sec GTB at 90 flexion 11: *GTB issued Skilled Intervention: Patient was educated in proper exercise technique and purpose for exercises. Reviewed and educated patient on additions/changes for home exercise program as above (*). Skilled judgment was provided in selection of appropriate interventions. Provided written instruction for home exercise program to facilitate proper performance and compliance. Correct performance of therapeutic exercises was facilitated with verbal, visual and tactile cuing. Additional time necessary for providing updated HEP due to adding GTB ER AROM and static hold exercises. Educated patient on rationale for performing exercises in regards to decreasing fatigue , increase ease of ADL and ROM and function . Patient education as noted. Billing Therapeutic Exercise Treatment Minutes: 40 Total Treatment Time Minutes (timed/untimed): 40 Lynda Osorio PT documented in this encounter [facility] 12-20-2021 Instructions Zack Holder MD - 12/20/2021 8:27 AM EDT Images from the original note were not included. 5 to Go!TM Healthy Kids Inside & Out 5 Eat FIVE fruits and veggies a day 4 Give and get FOUR compliments a day 3 Consume THREE calcium products a day 2 Limit media time to TWO hours a day 1 Get at least ONE hour of exercise a day 0 Consume ZERO sugar-sweetened drinks Go! Be healthy, inside and out! [email or web address] Adolescent to Adult Transition Program [facility] cares about helping you and each of our adolescents and young adults make a smooth transition to adult care. If your current doctor is a manager hair, we will work with you to decide the correct age for moving your care to a doctor or other provider who takes care of adults. We suggest that this move take place before age 22. Our office policy is to prepare you to move to a doctor or other provider who takes care of adults. This includes helping you find a doctor or other provider, sending medical records, and talking about any special needs with the new doctor or other provider. If your current doctor is in family medicine, [facility] will prepare you and your family for the transition to being an adult patient. You will be able to make your own healthcare decisions and will have an adult care team that meets your personal healthcare needs. At age 18, by law, we need your agreement to discuss personal health information with your family. We understand and respect that you may want to include your family in healthcare choices and will partner with you on how and when to include your family in decisions. We will make sure you know what changes to expect. We will also strive to make sure that all care team providers know your needs. We will help you find community resources and specialty care, if needed. Having your information before you come for the first time helps us be sure we do not miss any details. If joining our practice from outside [facility], we will help you request your medical record from past doctor(s) before your first visit. We will make every effort to work with your past providers to ensure a smooth transition and experience. We are always here for you. If you have any questions or concerns, please contact your primary care team or e-mail [email or web address] Got Transition is the federally funded national resource center on health care transition (HCT). Its aim is to improve transition from pediatric to adult health care through the use of evidence-driven strategies for health critical care cns, youth, young adults, and their families. www.gottransition.org [email or web address] documented in this encounter [facility] 12-20-2021 History of Present illness Narrative WELL VISIT PEDIATRIC MALE 18+YRS OLD SERVICE DATE: 12/20/2021 Chris is a 16 year old male who presents today for well exam. SUBJECTIVE CONCERNS: no concerns HISTORY ACTIVE PROBLEM LIST Pain in Right Elbow - 12/06/2021 PAST MEDICAL HISTORY Diagnosis Date Eye injury 12/10/2011 Cut right eye with scissors; repair NEGATIVE MEDICAL HISTORY Normal color vision Varicella 09/05/2016 PAST SURGICAL HISTORY Procedure Laterality Date CIRCUMCISION W/CLAMP/OTH DEV W/BLOCK at HERNIA REPAIR HX age 21 months-bilateral REPAIR OF HYDROCELE 21 mos bilat ALLERGIES Allergen Reactions Cephalosporins Hives, Diarrhea Seasonal Allergies Other: See Comments Runny nose, clears throat a lot Medications: No prescriptions on file. FAMILY HISTORY Problem Relation Age of Onset Allergies Mother None Father Diabetes Father Cousins-junenile diabetes Cancer Father Great aunt-small cell lung Heart Father Paternal/ Maternal Side No Known Problems Sister No Known Problems Maternal Grandmother No Known Problems Maternal Grandfather No Known Problems Paternal Grandmother No Known Problems Paternal Grandfather Social History Social History Narrative Not on file Smoking Exposure: Do you spend a significant amount of time with anyone who smokes? No School: Grade: 12th-this fall grade; grades A-B. Physical Activity: more than 1 hour of physical activity per day baseball, basketball Screen Time totaling more than 2 hours of screen time per day. Safety: Reviewed seat belts and smoke detectors Diet: -Eats 2 meals per day and 1-2 snacks per day -Typical beverages include water, tea -Fruits and vegetables are not eaten routinely -# of fast food meals/week: 2 -# of days/week that family has dinner together: 1-7 Elimination: no concerns, normal size and consistency Dental: dental care current Sleep: -no sleep concerns Yes, cell phone turned off before bedtime- No-uses as alarm clock and sound machine Substance use: none High risk behaviors: none Sexual History: Attraction: female Sexually Active: Yes Number of lifetime partners: 2 Contraception: condoms inconsistently History of STI: No Hx of STI/HIV testing? No Any new partners since last testing? n/a Penile discharge: No Body image: middle of the road Screening tools reviewed and discussed with patient/[id number] and Social Determinants of Health. Please see Patient Entered Data. REVIEW OF SYSTEMS GENERAL: No fevers EYES: No vision concerns, Wears corrective lenses and Vision screening completed by eye doctor ENT: No hearing concerns RESPIRATORY: Negative for cough, wheezing or respiratory distress CARDIOVASCULAR: Negative for chest pain, syncope, lightheadness or heart racing SKIN: Negative for lesions, rash, and itching ENDOCRINE: No growth concerns OBJECTIVE Physical Exam: BP 112/70 Pulse 68 Temp 36.6 C (97.9 F) (Temporal) Resp 18 Ht 181.5 cm (5' 11.46) Wt 90.7 kg (200 lb) BMI 27.54 kg/m Blood pressure percentiles are not available for patients who are 18 years or older. 92 %ile (Z= 1.41) based on CDC (Boys, 2-20 Years) BMI-for-age based on BMI available as of 12/20/2021. Last BMI: Wt: 88.2 kg (194 lb 8 oz) (93 %, Z= 1.47)* BMI: 27.81 kg/(m^2) Last 4 Encounter Wt Readings: Date: Wt: 12/20/2021 90.7 kg (200 lb) (94 %, Z= 1.58)* 11/26/2021 88.2 kg (194 lb 8 oz) (93 %, Z= 1.47)* 07/15/2021 92.4 kg (203 lb 12.8 oz) (96 %, Z= 1.73)* 07/12/2021 95.7 kg (211 lb) (97 %, Z= 1.88)* Last 4 Encounter Ht Readings: Date: Ht: 12/20/2021 181.5 cm (5' 11.46) (77 %, Z= 0.75)* 07/13/2020 178.1 cm (5' 10.12) (68 %, Z= 0.47)* 12/27/2019 177.8 cm (5' 10) (72 %, Z= 0.57)* 12/05/2018 170.8 cm (5' 7.25) (55 %, Z= 0.13)* General: Well developed, No acute distress Head: normocephalic Eyes: conjunctivae/corneas clear, irregular Right pupule Ears: normal external ear and canal, tympanic membranes with normal landmarks Nose: no erythema or rhinorrhea Oropharynx: moist mucous membranes, no erythema or exudate Neck: Supple, no adenopathy; thyroid symmetric, normal size, no bruits Spine: Back symmetric, no curvature. Resp: lungs clear to auscultation Heart: RRR, normal S1 and S2. , No murmurs Chest: symmetric, no lesions Abdomen: Soft, nontender, nondistended, no palpable organomegaly or masses, normal bowel sounds Genitalia: Moris stage IV Extremities: No clubbing, cyanosis, or edema., No deformities or skin discoloration. Good capillary refill. Full range of motion. Neuro: No focal deficits or abnormal findings present Skin: no rashes, lesions or jaundice ASSESSMENT & PLAN Encounter Diagnosis ICD-10-CM 1. Encounter for immunization Z23 MENINGOCOCCAL VACCINE, QUADRIVALENT (MENQUADFI) MENINGOCOCCAL GROUP B VACCINE 2 DOSE 92 %ile (Z= 1.41) based on CDC (Boys, 2-20 Years) BMI-for-age based on BMI available as of 12/20/2021. Chris is overweight (BMI 85th% - 95th%): -Discussed how healthy eating, minimizing electronics and getting physical activity impact physical and emotional health -Avoid eating out and encouraged family meals at home -Annual lipid panel ordered based on Obesity Expert Committee Guidelines -Biannual AST, ALT, and fasting glucose ordered due to overweight status and presence of additional risk factors based on Obesity Expert Committee Guidelines Depression Screening 12/20/2021 PHQ-2 Score 0 PHQ-9 Score 0 Depression screening tool completed and reviewed. Based on score and interview, patient is not at risk for depression. Screening tool discussed with patient, and I recommended no further intervention at this time. - Discussed diet and safety. - Dental care discussed. - Bright Futures handout given (See Patient Instructions). - Patient was counseled [id number] by myself (the billing provider) for the following immunizations and vaccine components, including side effects: MenQuadFi and Men B. Patient consents for immunization and understands risks and benefits. A VIS sheet on each immunization was given to the patient. Patient declined immunization for COVID-19 and was counseled regarding risk. - Healthcare transition statement not discussed.. - Follow up in one year for routine physical. SIGNATURE: Zack Holder MD PATIENT NAME: Chris Quach DATE: December 20, 2021 TIME: 8:09 AM documented in this encounter [facility] 12-13-2021 History of Present illness Narrative Episode Visit Count: 2 Therapist That Will Oversee The Plan Of Care: Lynda Osorio Start of Care Date: 12/06/21 Onset Date: 07/09/21 Plan of Care Certification Date: 12/06/21 Next Certification Due Date: 01/10/22 Patient Identified by Name and Date of : Yes REHABILITATION AND SPORTS THERAPY PHYSICAL THERAPY TREATMENT NOTE ASSESSMENT: Chris Quach tolerated the session with decreased symptoms. He demonstrated improvements in pain with deep palpation right forearm extensor muscles following soft tissue mobs. Good tolerance to newly added scapular stabilization exercises. The patient will continue to benefit from ongoing skilled physical therapy to progress toward set goals. PLAN FOR NEXT VISIT: Monitor delayed response to treatment. SUBJECTIVE: Patient Reason for Visit: Patient reports no pain currently and no pain throwing in baseball. Patient reports doing exercises 2 times per day. Pain: Pain Pain Level: 4 Pain Location: (right latleral epicondyle and forearm extensor muscles) Description: Sharp (with deep palpation) Frequency: (to palpation) Post Treatment Pain Post Treatment Pain Level: 0 Post Treatment Pain Location: (right elbow and extensor muscles) Post Treatment Symptoms: feels looser and better OBJECTIVE MEASURES WITH LEVEL OF FUNCTION: Tenderness to palpation right forearm extensor muscles at start of treatment and minimal to no pain at end of treatment. TREATMENT: Therapeutic Exercise: 1: *Prone lying T 2x10 2: *Prone lying Y 2x10 3: *Prone lying I 2x10 4: Prone rows 2# 2x10 and 3# 1x10 5: *Right wrist extensor stretch 3x30 seconds with self over pressure. 6: Purple rep band scapular retraction 1x10 (too easy) 7: Hoist scapular retraction 4 large plates 1x10 and 5 large plates 2x10 8: *Right wrist extensor stretch 3x30 seconds with self over pressure. Skilled Intervention: Patient was educated in proper exercise technique and purpose for exercises. Reviewed and educated patient on additions/changes for home exercise program as above (*). Skilled judgment was provided in selection of appropriate interventions. Provided written instruction for home exercise program to facilitate proper performance and compliance. Correct performance of therapeutic exercises was facilitated with verbal and visual cuing. Manual Therapy: Soft Tissue Mobilization: STM with Hawks pull worker tools right lateral epicondyle and forearm extensor muscles with push to tolerance. Education on how to use a lacrossed ball at home for Sft tissue mobs. Skilled Intervention: Manual skills to improve joint mobility, ROM, and decrease pain. Utilized anatomy knowledge of the therapist, and assessment of patient's response to intervention. Billing Therapeutic Exercise Treatment Minutes: 20 Manual TherapyTreatment Minutes: 23 Total Treatment Time Minutes (timed/untimed): 43 NYLA Haynes PT documented in this encounter [facility] 11-26-2021 Instructions Zack Holder MD - 11/26/2021 10:28 AM EDT 5 to Go!TM Healthy Kids Inside & Out 5 Eat FIVE fruits and veggies a day 4 Give and get FOUR compliments a day 3 Consume THREE calcium products a day 2 Limit media time to TWO hours a day 1 Get at least ONE hour of exercise a day 0 Consume ZERO sugar-sweetened drinks Go! Be healthy, inside and out! [email or web address] documented in this encounter [facility] 11-26-2021 History of Present illness Narrative PEDIATRIC ELBOW/WRIST/HAND INJURY VISIT SERVICE DATE: 11/26/2021 Chris Quach is a 15 year old male accompanied by mother presenting with injury to his right elbow(s). HPI: Date of the injury or when pain began: Patient presents with: elbow pain-right: started in June went away after about a month then just started up again, hurting worse , denies any injury History of the injury: Dec-May no problems with off season throwing program velocity did increase in the off season (did not have VELO program) does curve and changeup no clear change in mechanics Has needed more lengthy warm up. In the middle of season- got better This summer faired up worse than 1st time Has pain all the time- comes and goes. Pitch counts- 1 inning- closer (max 30) Plays 3rd base, SS as well. no pain with batting FOOSH (Fall On Outstretched Hand): No Bruising: No Swelling: No Numbness/Tingling: No Radiation of the pain: No Pain is made worse by: turning doorknobs and throwing Pain is relieved by: rest Treatment attempted: Ibuprofen and biofreeze ice after game- not stretching after Night pain: No Pain since injury: intermittent Chris Quach has returned to sport Prior injuries to this area: None Family History: FAMILY HISTORY Problem Relation Age of Onset Allergies Mother None Father Diabetes Father Cousins-junenile diabetes Cancer Father Great aunt-small cell lung Heart Father Paternal/ Maternal Side No Known Problems Sister No Known Problems Maternal Grandmother No Known Problems Maternal Grandfather No Known Problems Paternal Grandmother No Known Problems Paternal Grandfather ROS: Redness/swelling of other joints: No New or atypical rashes: No Physical exam: Pulse 72 Temp 36.4 C (97.6 F) (Temporal) Resp 14 Wt 88.2 kg (194 lb 8 oz) General: Well developed, No acute distress Musculoskeletal: Elbow: tender upon palpation over medial epicondyle and ulna and pain with valgus stress Wrist/Hand: full ROM and nl strength Fingers: full ROM Neuro: Sensation intact to light touch and intact to pain and pull worker strength nl Skin: Normal color, texture and turgor. No rashes. Xrays: not indicated Assessment/Plan: Encounter Diagnosis ICD-10-CM 1. Pain in right elbow M25.521 CONSULT TO PHYSICAL THERAPY - refer to Physical Therapy - Ice-15 minutes three times per day - Ibuprofen as needed - discussed overuse injuries and management SIGNATURE: Zack Holder MD PATIENT NAME: Chris Quach DATE: November 26, 2021 TIME: 10:28 AM documented in this encounter [facility] 04-24-2020 History of Present illness Narrative Radiology Service Progress Note PATIENT NAME: Chris Quach DATE OF SERVICE: April 24, 2020 TIME: 4:55 PM PATIENT IDENTITY VERIFICATION COMPLETED USING TWO (2) IDENTIFIERS: Name and Date of confirmed by patient verbally. FALL SCREENING: Has the patient had 2 falls in the last year or 1 fall with injury or currently using an Ambulatory Assistive Device (Walker, Cane, Wheelchair, Crutches, etc.)? No PATIENT GENDER DATA: Male PATIENT RELEVANT IMPLANT DATA REVIEWED: Not Applicable RADIOLOGY DEPARTMENT: General X-ray: Exam(s) Completed: Lower Extremity X-Ray(s): Ankle, Right and Foot, Right: PERIPHERAL IV DATA: Not applicable SIGNED BY: RT Jemima April 24, 2020 4:55 PM documented in this encounter [facility] 04-07-2017 History of Past i llness Narrative Problem Noted Date Resolved Date Overweight 04/07/2017 12/20/2021 documented as of this encounter (statuses as of 12/20/2021) [facility] History of Past illness Narrative* Problem Noted Date Resolved Date Overweight 04/07/2017 12/20/2021 documented as of this encounter (statuses as of 12/20/2021) [facility] History of Past illness Narrative* Problem Noted Date Diagnosed Date Resolved Date Overweight 04/07/2017 12/20/2021 documented as of this encounter (statuses as of 08/09/2023) [facility] Diagnosis Pain in right elbow- Primary Pain in joint, upper arm [facility] Pain in right elbow Pain in joint, upper arm [facility] Diagnosis Encounter for routine child health examination w/o abnormal findings- Primary Routine infant or child health check Encounter for immunization Need for other specified prophylactic vaccination against single bacterial disease documented in this encounter [facility] note* Diagnosis Bilateral impacted cerumen- Primary Impacted cerumen Dermoid cyst of neck documented in this encounter [facility] note* Diagnosis Sore throat- Primary Acute pharyngitis [facility] Diagnosis Strep pharyngitis- Primary Streptococcal sore throat Sore throat Acute pharyngitis URI, acute Acute upper respiratory infections of unspecified site documented in this encounter [facility] note* Diagnosis Sore throat- Primary Acute pharyngitis [facility] Diagnosis Sore throat- Primary Acute pharyngitis Viral syndrome Unspecified viral infection, in conditions classified elsewhere and of unspecified site documented in this encounter [facility] Reason for Referral Specialty Diagnoses / Procedures Referred By Kyle rincon Referred To Contact [facility] Diagnoses Pain in right elbow Procedures CONSULT TO PHYSICAL THERAPY PHYSICAL THERAPY EVALUATION [facility] [address] [place] [address] [place] [id number] [facility] [place] [address] [place] [id number] Referral ID Status Reason Start Date Expiration Date Visits Requested Visits Authorized [id number] Pending Review Auto-Generat ed Referral 11/26/2021 11/26/2022 1 1 Specialty Diagnoses / Procedures Referred By Kyle rincon Referred To Contact General Surgery Diagnoses Dermoid cyst of neck Procedures CONSULT TO GENERAL SURGERY OFFICE/OUTPATIENT [facility] 60 MINUTES Flor Child MD [address] [place] [address] Referral ID Status Reason Start Date Expiration Date Visits Requested Visits Authorized [id number] Authorized PCP Requested Referral 08/04/2023 08/03/2024 1 1 Summary Purpose Family History No Family History Records Found Advance Directives No Advanced Directives Records Found Additional Source Comments Source Comments (unrecognize d section and content) In the event this informatio n is protected by the Federal Confidentiality of Alcohol and Drug Abuse Patient Records regulations: The Federal rules restrict any use of the information to criminally investigate or prosecute any alcohol or drug abuse patient.[facility] event this information is protected by the Federal Confidentiality of Alcohol and Drug Abuse Patient Records regulations: The Federal rules restrict any use of the information to criminally investigate or prosecute any alcohol or drug abuse patient.[facility] the event this information is protected by the Federal Confidentiality of Alcohol and Drug Abuse Patient Records regulations: The Federal rules restrict any use of the information to criminally investigate or prosecute any alcohol or drug abuse patient.[facility] the event this information is protected by the Federal Confidentiality of Alcohol and Drug Abuse Patient Records regulations: The Federal rules restrict any use of the information to criminally investigate or prosecute any alcohol or drug abuse patient.[facility] the event this information is protected by the Federal Confidentiality of Alcohol and Drug Abuse Patient Records regulations: The Federal rules restrict any use of the information to criminally investigate or prosecute any alcohol or drug abuse patient.[facility] the event this information is protected by the Federal Confidentiality of Alcohol and Drug Abuse Patient Records regulations: The Federal rules restrict any use of the information to criminally investigate or prosecute any alcohol or drug abuse patient.[facility] the event this information is protected by the Federal Confidentiality of Alcohol and Drug Abuse Patient Records regulations: The Federal rules restrict any use of the information to criminally investigate or prosecute any alcohol or drug abuse patient.[facility] the event this information is protected by the Federal Confidentiality of Alcohol and Drug Abuse Patient Records regulations: The Federal rules restrict any use of the information to criminally investigate or prosecute any alcohol or drug abuse patient.[facility] the event this information is protected by the Federal Confidentiality of Alcohol and Drug Abuse Patient Records regulations: The Federal rules restrict any use of the information to criminally investigate or prosecute any alcohol or drug abuse patient.[facility] the event this information is protected by the Federal Confidentiality of Alcohol and Drug Abuse Patient Records regulations: The Federal rules restrict any use of the information to criminally investigate or prosecute any alcohol or drug abuse patient.[facility] Reason for Visit (unrecogniz ed section and content) Reason Comments elbow pain-right started in June went away after about a month then just started up again, hurting worse , denies any injury Reason Comments Physical Therapy Specialty Diagnoses / Procedures Referred By Kyle rincon Referred To Contact [facility] Diagnoses Pain in right elbow Procedures CONSULT TO PHYSICAL THERAPY PHYSICAL THERAPY EVALUATION HIGH COMPLEX 45 MINS Zack Holder MD [address] [place] [address] [facility] [address] [place] [address] Referral ID Status Reason Start Date Expiration Date V isits Requested Visits Authorized [id number] Authorized 05/29/2021 05/28/2022 99 99 Reason Comments Well Child 16 year Reason Comments growth on neck Growth on right side of neck, has bene there a few years now. Is not painful. Reason Comments Sore Throat X3 days Reason Comments Sore Throat Nasal congest, chest congestion, Left ear clogged, x 1 month Reason Comments Sore Throat ST and fever x 1 day Care Teams (unrecognized sec tion and content) Distribution Operation Supervisor Relationship Specialty Start Date End Date Zack Holder MD [address] [place] [address] PCP - General Pediatrics 01/02/12 Distribution Operation Supervisor Relationship Specialty Start Date End Date Zack Holder MD [address] [place] [address] PCP - General Pediatrics 01/02/12 Distribution Operation Supervisor Relationship Specialty Start Date End Date Zack Holder MD [address] [place] [address] PCP - General Pediatrics 01/02/12 Distribution Operation Supervisor Relationship Specialty Start Date End Date Zack Holder MD [address] [place] [address] PCP - General Pediatrics 01/02/12 Distribution Operation Supervisor Relationship Specialty Start Date End Date Zack Holder MD [address] [place] [address] PCP - General Pediatrics 01/02/12 Distribution Operation Supervisor Relationship Specialty Start Date End Date Zack Holder MD [address] [place] [address] PCP - General Pediatrics 01/02/12 Distribution Operation Supervisor Relationship Specialty Start Date End Date Zack Holder MD [address] [place] [address] PCP - General Pediatrics 01/02/12 Distribution Operation Supervisor Relationship Specialty Start Date End Date Zack Holder MD [address] [place] [address] PCP - General Pediatrics 01/02/12 (unrecognized sect ion and content) No Status Records Found INFORMATION SOURCE (unrecogn ized section and content) DATE CREATED AUTHOR 11/16/2024 [facility] FOR RECORDS PERTAINING TO PATIENTS WHO ARE OR HAVE BEEN ENROLLED IN A CHEMICAL DEPENDENCY/SUBSTANCEABUSE PROGRAM, SOME INFORMATION MAY BE OMITTED. This clinical summary was aggregated from multiple sources. Caution should be exercised in using it in the provision of clinical care. This summary normalizes information from multiple sources, and as a consequence, information in this document may materially change the coding, format and clinical context of patient data. In addition, data may be omitted in some cases. CLINICAL DECISIONS SHOULD BE BASED ON THE PRIMARY CLINICAL RECORDS. [facility] [employer] [facility] provides no warranty or guarantee of the accuracy or completeness of information in this document.
== END | disposition home or self-care (01) ==
LOC: LABSPEC 15:43
PROVIDERS: PCP Pediatrics; Referring Provider Otolaryngology; Visit Provider Otolaryngology
DX: J35.01 Chronic tonsillitis (principal)
CPT/HCPCS: 88304